=== PATIENT | female | born 1995 | race Caucasian/White ===

== ENCOUNTER 2021-02-22 11:50 | Emergency (ER) | payer OTHER, SELFPAY ==
--- NOTE | ~2021-02-22 | XR_ITS ---
EXAMINATION: XR CHEST CLINICAL INFORMATION: Shortness of breath. COMPARISON: 01/12/2018 TECHNIQUE: Frontal view of the chest was obtained. FINDINGS: Cardiomediastinal silhouette is within normal limits. The lungs are well expanded. No consolidation, edema, or effusion. No pneumothorax. XR/XR chest 1V IMPRESSION: Unremarkable examination.
[2021-02-22 11:59] VITALS: BP 125/87; BP 144/78; PULSE 60; PULSE 72; RESP 18; TEMP 36.9; O2SAT 98; BMI 32.5
--- NOTE | 2021-02-22 12:03 | ED_ITS ---
HPI - URI/Sore Throat General Chief Complaint: Upper Respiratory Symptoms Stated Complaint: n/v Time Seen by Provider: 02/22/21 11:55 Source: patient Mode of arrival: EMS Limitations: no limitations History of Present Illness HPI Narrative: 25-year-old female past medical history significant for asthma presents to the emergency department with cough, shortness of breath, fevers, nausea x3 days progressively worsening. She states that she has been having a dry cough, she states that her cough is intermittent in nature, and causes her to feel nauseous. She denies sputum production. She also states that she has been feeling short of breath, and feels like she can take a few steps without having to gasp for air. She reports fevers at home T max 101.4 yesterday night. She states she has been feeling like crap over the past 3 days, and the only thing that helped her was the oxygen from the ambulance. She is a former smoker. She states that her child is currently sick with an upper respiratory infection. She denies vomiting, abdominal pain, rhinorrhea, ear pain, sore throat, chest pain, weakness. She does report loss of appetite. Her asthma has never required intubation. Vaccinated against covid-19 MD elicited complaint: fever and cough Pertinent past history: asthma Onset (ago): day(s) (3) Consistency: constant Severity: severe Able to tolerate fluids by mouth: Yes Exacerbating factors: nothing Relieving factors: other (Oxygen) Context: sick contacts (Patient's child has an upper respiratory infection) Associated symptoms: fever, cough, shortness of breath and nausea Treatments prior to arrival: other (Oxygen) Related Data Previous Rx's Medication Instructions Recorded albuterol sulfate 90 mcg/actuation 1 inh INHALATION QID PRN #8.5 g 02/22/21 aerosol inhaler (ProAir HFA) azithromycin 250 mg tablet See Rx Instructions PO .COMPLEX #6 02/22/21 (Zithromax Z-Kyaw) tab benzonatate 100 mg capsule 100 mg PO BID PRN #14 cap 02/22/21 (Tessalon Perles) prednisone 20 mg tablet 60 mg PO DAILY 4 Days #12 tab 02/22/21 Allergies Allergy/AdvReac Type Severity Reaction Status Date / Time butalbital [From FIORICET] Allergy Unknown SWELLING Unverified 01/15/20 16:46 codeine [CODEINE] Allergy Unknown ITCHING Unverified 01/15/20 16:46 codeine Allergy Unknown itching Uncoded 09/19/16 00:00 fiorocet Allergy Unknown lip Uncoded 01/16/17 00:00 swelling shell fish Allergy Unknown rash Uncoded 09/19/16 00:00 SHELLFISH Allergy Unknown SWELLING Uncoded 01/15/20 16:46 Review of Systems Review of Systems: Yes all other systems are reviewed and are negative Neurologic: Reports Abnormal speech present [facility]LY [facility] Past Medical History Attestation statement: The following information was validated with the patient. Source: old records reviewed and nursing notes reviewed Social History Social History Advance Directives: Yes Advance Directives Information Provided: Yes Advance Directives on File: No Patient : No Physical Exam Vital Signs: Vital Signs: Last Vital Signs Temp 97.5 F 02/22/21 12:59 Pulse 82 02/22/21 12:59 Resp 14 02/22/21 12:59 BP 125/70 02/22/21 12:59 Pulse Ox 94 02/22/21 12:59 Body Mass Index 32.5 Const: General: cooperative, no acute distress, well developed, alert and awake Orientation/consciousness: oriented to person HENMT: Head: Yes normal to inspection, Yes normocephalic and Yes atraumatic Ears: hearing grossly normal bilaterally General nose exam: Normal external nose present Face and sinus: Yes normal facial exam Mouth: Normal oral and palatal mucosa present, lip normal, tongue normal, oropharynx normal and moist mucous membranes Throat: Yes posterior oropharynx normal, Yes tonsils normal and Yes uvula midline Eyes: General: appearance normal, both eyes and all related structures Eyelids: Yes eyelids normal Conjunctivae: conjunctivae normal Sclerae: sclerae normal Corneas: corneas normal Pupils: Equal, round and reactive pupils present Neck: Neck: Yes normal visual inspection, Yes no lymphadenopathy, Yes trachea midline and Yes supple Thyroid: Thyroid normal Lymphatic: no lymphadenopathy noted Chest: Chest palpation & inspection: normal inspection of the chest and normal palpation of entire chest wall Resp: Effort & Inspection: normal respiratory effort and able to speak in complete sentences Auscultation: wheezes Cardio: Rate: regular rate Rhythm: regular rhythm Heart sounds: S1 normal heart sound present, S2 normal heart sound present and no murmurs GI: Inspection: Yes normal to inspection Palpation (GI): Soft to palpation, nontender and No hepatosplenomegaly present Auscultation: normal bowel sounds : General: Yes no CVA tenderness Back/Spine/Pelvis: Back: no CVA tenderness Thoracic/Lumbar Spine: thoracic and lumbar spine normal to inspection Skin: General skin exam: no rashes or lesions noted, no erythema and no jaundice Lesions: no lesions Rashes: no rashes Trauma: no lacerations or abrasions Wounds: no wounds Neuro: General: oriented to person, moves all extremities and no focal motor deficits Cranial nerves: Yes Equal, round and reactive pupils present Cognition (Neuro): normal cognition Speech: Abnormal speech present Motor exam (neuro): Motor abnormalities not present Extrem: Other: negative royal General: Yes normal to inspection, Yes no pedal edema and Yes no calf tenderness Right upper extremity: normal to inspection Left upper extremity: normal to inspection Right lower extremity: normal to inspection Left lower extremity: normal to inspection Psych: Appearance: grossly normal Mental Status: mental status grossly normal Speech and movement: Normal speech and movement present Affect: normal affect Attitude: cooperative Thought process: Normal thought process present Insight: Good insight present (Psych) Course Reevaluation(s) Reevaluation #1: Patient reports significant improvement after albuterol. Cxray negative. VSS. Safe for DC home with PCP follow up. Has been advised to return with new or worsneing symptoms Time: 13:05 MDM - URI/Sore Throat MDM Narrative Medical decision making narrative: 25 yo female pmhx significant for asthma presents to the ED with non productive cough, SOB and fevers Tmax 101.4 and nasuea X3 days and progressively worsening. Positive sick contacts at home child has URI. Vaccinated against covid-19. Upon physical examination there is wheezing appreciated over all lung muniz. Plan at this time is to obtain chest x-ray, COVID, give albuterol, and prednisone. This is likely bronchitis. Plan at this time is to discharge patient home on prednisone, and a Z-Kyaw. Medical Records Attestation: I reviewed the patient's medical records. Lab Data Attestation: I reviewed the patient's lab results. Labs: Lab Results 02/22/21 Range/Units 12:20 COVID-19 (JEAN CLAUDE) Negative (Negative) COVID-19 Clin Com See Note Imaging Data Chest x-ray: Attestation: I personally reviewed and interpreted this imaging study as follows: Radiologist's impression: FINDINGS: Cardiomediastinal silhouette is within normal limits. The lungs are well expanded. No consolidation, edema, or effusion. No pneumothorax. XR/XR chest 1V IMPRESSION: Unremarkable examination Discharge Plan Discharge Clinical Impression: Bronchitis, Cough, Nausea Patient Disposition: Home, Self-Care Instructions: Acute Bronchitis (ED), Cold Symptoms (ED), Acute Cough (ED) Additional Instructions: Follow-up with your primary care provider in 2 days Drink plenty of fluids Today you tested negative for COVID-19 Return to the emergency department with new or worsening symptoms Prescriptions: New benzonatate [Tessalon Perles] 100 mg capsule 100 mg PO BID PRN (Reason: cough) Qty: 14 RF: 0 prednisone 20 mg tablet 60 mg PO DAILY 4 Days Qty: 12 RF: 0 albuterol sulfate [ProAir HFA] 90 mcg/actuation HFA aerosol inhaler 1 inh inhalation QID PRN (Reason: shortness of breath or wheezing) Qty: 8.5 RF: 0 azithromycin [Zithromax Z-Kyaw] 250 mg tablet See Rx Instructions PO .COMPLEX Qty: 6 RF: 0
[2021-02-22] MEDS: Albuterol Sulfate 90 MCG 8 GM INHALER 4 PUFF INHALE (12:14)
[2021-02-22 12:45] LABS: COVID-19 Test Negative (Negative)
[2021-02-22 12:59] VITALS: BP 125/70; PULSE 82; RESP 14; TEMP 36.4; O2SAT 94
[2021-02-22] MEDS: predniSONE 20 MG TABLET 60 MG PO (13:14)
== END 2021-02-22 13:39 | disposition home or self-care (01) ==
PROVIDERS: Emergency Provider Emergency Medicine Emergency Medical Services
DX: J20.9 Acute bronchitis, unspecified (principal); R05.9 Cough, unspecified; R06.02 Shortness of breath; R11.0 Nausea; R50.9 Fever, unspecified; Z20.822 Contact with and (suspected) exposure to COVID-19
CPT/HCPCS: 36415; 71045; 87635; 99284

== ENCOUNTER 2021-07-22 10:43 | Emergency (ER) | payer OTHER, SELFPAY ==
[2021-07-22 10:51] VITALS: BP 113/78; PULSE 78; RESP 16; TEMP 36.2; O2SAT 99; BMI 30.2
--- NOTE | 2021-07-22 11:02 | ED.HA ---
HPI - Headache General Chief Complaint: Headache Stated Complaint: Rash/Migraine Time Seen by Provider: 07/22/21 11:00 Source: patient Mode of arrival: ambulatory Limitations: no limitations History of Present Illness HPI Narrative: Patient is a 26 year old female presenting to the emergency department today with a migraine headache. Patient states that she has a history of migraines and is in the middle of one now. Patient states that she has been having this migraine for the last 3 days. Patient states that this morning she woke up with a rash on her upper leg. Patient denies any dizziness, lightheadedness, abdominal pain, nausea, vomiting, fever, chills, blurry vision, double vision, loss of vision, chest pain, difficulty breathing, shortness of breath, back pain, night sweats, pain with urination, increased urinary frequency, increased urinary urgency, blood in her urine or stool, syncope or a near syncopal episode, recent trauma or falls, bowel incontinence, bladder incontinence, bowel retention, bladder retention, or any other complaints at this time. MD elicited complaint: migraine Pertinent past history: migraines Onset (ago): day(s) (3) Onset description: gradually Location: generalized Severity: mild Pain scale (0-10): 3 Quality & Timing: dull Exacerbating factors: none Relieving factors: nothing Associated symptoms: rash Related Data Previous Rx's Medication Instructions Recorded albuterol sulfate 90 mcg/actuation 2 puff INHALATION Q4-6H PRN #8.5 g 02/22/21 aerosol inhaler azithromycin 250 mg tablet See Rx Instructions PO .COMPLEX 02/22/21 (Zithromax Z-Kyaw) PRN #6 tab benzonatate 100 mg capsule 100 mg PO BID PRN #14 cap 02/22/21 (Tessalon Perles) prednisone 20 mg tablet 60 mg PO DAILY 4 Days #12 tab 02/22/21 Allergies Allergy/AdvReac Type Severity Reaction Status Date / Time butalbital [From FIORICET] Allergy Unknown SWELLING Verified 07/22/21 10:52 codeine [CODEINE] Allergy Unknown ITCHING Verified 07/22/21 10:52 codeine Allergy Unknown itching Uncoded 09/19/16 00:00 fiorocet Allergy Unknown lip Uncoded 01/16/17 00:00 swelling shell fish Allergy Unknown rash Uncoded 09/19/16 00:00 SHELLFISH Allergy Unknown SWELLING Uncoded 01/15/20 16:46 Review of Systems Constitutional: Constitutional: Reports no additional constitutional complaints, Denies chills, Denies fever(s), Reports headache(s) and Denies night sweats Eyes: Eyes: Reports no additional eye complaints, Denies blurry vision, Denies change in vision, Denies diplopia, Denies eye discharge, Denies loss of vision and Denies eye pain ENT: Denies dizziness and Reports headache(s) Cardiovascular: Cardiovascular: Reports no additional cardiovascular complaints, Denies chest pain, Denies lightheadedness, Denies Loss of Consciousness and Denies dyspnea Respiratory: Respiratory: Reports no additional respiratory complaints and Denies dyspnea Gastrointestinal: Gastrointestinal: Reports no additional gastrointestinal complaints, Denies abdominal pain, Denies melena, Denies hematochezia, Denies change in bowel habits and Denies change in stool character Genitourinary: Genitourinary: Denies hematuria, Denies urinary frequency, Denies dysuria, Denies urinary incontinence, Denies urinary hesitancy and Denies urinary urgency Musculoskeletal: Musculoskeletal: Reports no additional musculoskeletal complaints, Denies numbness and Denies tingling Integumentary/Breasts: Skin/Breast: Reports rash Neurologic: Denies dizziness, Reports headache(s), Denies loss of vision, Denies numbness and Denies tingling Psychiatric: Psychiatric: Reports no additional psychiatric complaints Endocrine: Endocrine: Reports no additional endocrine complaints Hematologic/Lymphatic: Hematologic/Lymphatic: Reports no additional hematologic/lymphatic complaints Allergic/Immunologic: Allergic/Immunologic: Reports no additional allergic/immunologic complaints [facility] Past Medical History Attestation statement: The following information was validated with the patient. Source: old records reviewed Social History Social History Alcohol intake: never Patient Tobacco Use Status: Former Tobacco user Advance Directives: No Advance Directives Information Provided: No Patient : No Physical Exam Vital Signs: Vital Signs: Last Vital Signs Temp 97.1 F 07/22/21 10:51 Pulse 78 07/22/21 10:51 Resp 16 07/22/21 10:51 BP 113/78 07/22/21 10:51 Pulse Ox 99 07/22/21 10:51 BMI result Body Mass Index 30.2 Const: General: cooperative, no acute distress, alert and awake Nutritional Appearance: well nourished Orientation/consciousness: patient oriented x3 Limitations: no limitations HEENT: Head: Yes normal to inspection and Yes atraumatic Ears: hearing grossly normal bilaterally and external ears normal General nose exam: Normal external nose present, no nasal discharge noted and no epistaxis Face and sinus: Yes normal facial exam, No abrasion and No laceration Mouth: Normal oral and palatal mucosa present, no drooling and no muffled voice Eyes: General: appearance normal, both eyes and all related structures Periorbital: periorbital findings normal Eyelids: Yes eyelids normal Conjunctivae: conjunctivae normal Pupils: Equal, round and reactive pupils present EOM: EOMs intact bilaterally Neck: Neck: Yes normal visual inspection, Yes full ROM and Yes no lymphadenopathy Chest: Chest palpation & inspection: normal inspection of the chest Resp: Effort & Inspection: normal respiratory effort and able to speak in complete sentences Auscultation: clear to auscultation bilaterally Cardio: Rate: regular rate Rhythm: regular rhythm GI: Inspection: Yes normal to inspection Skin: Other: erythematous rash to the right upper thigh consistent with a contact dermatitis Neuro: General: patient oriented x3 and moves all extremities Cranial nerves: Yes Equal, round and reactive pupils present Cognition (Neuro): normal cognition Motor exam (neuro): 5/5 motor strength present throughout Sensory Exam: Normal double simultaneous stimulation for sensation Coordination: [id number] test normal Extrem: General: Yes normal to inspection, Yes full ROM and Yes capillary refill normal Psych: Appearance: grossly normal Mental Status: mental status grossly normal Affect: normal affect Attitude: cooperative Thought process: Normal thought process present Thought content: Normal thought content present Insight: Good insight present (Psych) MDM - Headache MDM Narrative Medical decision making narrative: Patient is a 26 year old female presenting to the emergency department today with a migraine headache. Patient's physical exam showed a small, erythematous rash to the anterior aspect of the right upper leg. The rash is consistent with a contact dermatitis. Patient's physical exam was otherwise unremarkable including a normal neurological examination and no meningeal signs. I explained my physical exam findings to the patient. I answered all questions asked by the patient. Patient received IM Toradol and Benadryl as well as PO Zofran which she stated helped her symptoms significantly. I stressed the importance of the patient taking her medication as prescribed. I stressed the importance of the patient following up with her primary care provider. I stressed the importance of the patient returning to the emergency department immediately if her symptoms were to worsen or if she were to develop any dizziness, shortness of breath, difficulty breathing, chest pain, blurry vision, loss of vision, nausea, vomiting, abdominal pain, fever, chills, back pain, or any other complaints. Patient verbalized agreement and understanding with this treatment plan and discharge. Differential Diagnosis Differential diagnosis: Likely migraine Medical Records Attestation: I reviewed the patient's medical records. Discharge Plan Discharge Clinical Impression: Migraine Patient Disposition: Home, Self-Care Instructions: Migraine Headache (ED) Additional Instructions: Follow up with your primary care provider. Return to the emergency department immediately if your symptoms worsen or if you develop any dizziness, shortness of breath, difficulty breathing, chest pain, blurry vision, loss of vision, nausea, vomiting, abdominal pain, fever, chills, back pain, or any other complaints. Prescriptions: No Action benzonatate [Tessalon Perles] 100 mg capsule 100 mg PO BID PRN (Reason: cough) Qty: 14 0RF albuterol sulfate 90 mcg/actuation HFA aerosol inhaler 2 puff inhalation Q4-6H PRN (Reason: shortness of breath or wheezing) Qty: 8.5 0RF prednisone 20 mg tablet 60 mg PO DAILY 4 Days Qty: 12 0RF azithromycin [Zithromax Z-Kyaw] 250 mg tablet See Rx Instructions PO .COMPLEX PRN (Reason: cough) Qty: 6 0RF Rx Instructions: take 500 mg today (day 1), then 250 mg for 4 days (days 2-5) PO PRN; Referrals: Physician,None [Primary Care Provider] - 2 days (Follow up with your PCP. ) Print Language: Sami
[2021-07-22] MEDS: Ketorolac Tromethamine 15 MG/ML VIAL IM (11:43)
[2021-07-22] MEDS: Ondansetron ODT 4 MG TAB.RAPDIS TRANSLINGU (11:43)
[2021-07-22] MEDS: diphenhydrAMINE HCL 50 MG/ML VIAL 25 MG IM (11:43)
[2021-07-22 11:47] VITALS: RESP 16
== END 2021-07-22 11:58 | disposition home or self-care (01) ==
PROVIDERS: Emergency Provider Emergency Medicine
DX: G43.909 Migraine, unspecified, not intractable, without status migrainosus (principal)
CPT/HCPCS: 96372; 99284; J1200; J1885

== ENCOUNTER 2021-11-19 16:34 | Emergency (ER) | payer OTHER, SELFPAY ==
[2021-11-19 17:10] VITALS: BP 116/55; PULSE 68; RESP 16; TEMP 36.3; O2SAT 97; BMI 34.6
[2021-11-19 17:49] LABS: MANUAL DIFF FLAG NO
[2021-11-19 17:52] LABS: Basophils Percent Auto 0.1 % (0-2); Eosinophils Percent Auto 0.1 % (0-4); Hematocrit 40.8 % (37.0-47.0); Hemoglobin 13.2 g/dl (12.0-16.0); Imm Gran Abs Auto 0.05 X10*3/uL (0.00-0.03); Imm Gran Pct Auto 0.3 % (0.0-0.4); Lymphocytes Absolute Auto 0.7 X10*3/uL (1.2-4.9); Lymphocytes Percent Auto 4.3 % (20-40); Mean Corpuscular HGB Conc 32.4 g/dl (31.0-35.0); Mean Corpuscular Hemoglobin 26.1 pg (27.0-33.0); Mean Corpuscular Volume 80.6 fL (80.0-98.0); Mean Platelet Volume 9.8 fL (9.4-12.3); Monocytes Absolute Auto 0.3 X10*3/uL (0.1-1.2); Neutrophils Absolute Auto 14.6 x10*3/uL (2.0-8.3); Neutrophils Percent Auto 93.2 % (45-73); Platelet Count 249 X10*3/uL (160-400); Red Blood Count 5.06 X10*6/uL (4.20-5.50); Red Cell Distribution Width 12.9 % (11.0-16.0); SCAN SMEAR FLAG 1; White Blood Count 15.7 X10*3/uL (4.8-10.8)
[2021-11-19 18:07] LABS: COVID-19 Test Negative (Negative); IDNOW Serial# 55D5AD1C
[2021-11-19 18:10] LABS: Influenza A Negative (Negative); Influenza B2 Negative (Negative)
[2021-11-19 18:22] LABS: Anion Gap 12 (12-20); Blood Urea Nitrogen 9 mg/dL (9-16); Calcium 8.9 mg/dL (8.4-10.2); Carbon Dioxide 27 mmol/L (22-29); Chloride 104 mmol/L (96-108); Creatinine Clr Calc Pharmacy 102.1; Estimated Glomerular Filt Rate > 60; Glucose Random 85 mg/dL (60-115); Potassium 3.5 mmol/L (3.3-5.1); Sodium 139 mmol/L (135-145)
== END 2021-11-19 23:23 | disposition left against medical advice (07) ==
PROVIDERS: Emergency Provider Emergency Medicine
DX: R11.10 Vomiting, unspecified (principal); R51.9 Headache, unspecified; Z20.822 Contact with and (suspected) exposure to COVID-19; F17.200 Nicotine dependence, unspecified, uncomplicated; F12.90 Cannabis use, unspecified, uncomplicated
CPT/HCPCS: 36415; 80048; 85025; 87502; 87635; 99283

== ENCOUNTER 2021-12-27 15:00 | Inpatient (IN) | payer OTHER, SELFPAY ==
--- NOTE | ~2021-12-27 | XR_ITS ---
EXAMINATION: XR FINGER, LEFT CLINICAL INFORMATION: Infection index finger. Insect bite 1 week ago. COMPARISON: None TECHNIQUE: AP view left hand and 2 views of the index finger are obtained. FINDINGS: There is diffuse soft tissue swelling of the index finger. There is no gas tracking in the soft tissues or radiopaque soft tissue foreign body. The underlying bony structures show normal mineralization. There is no acute or healing fracture, dislocation, destructive process, or periostitis. No joint narrowing or erosive changes. XR/XR finger LT min 2V IMPRESSION: -Diffuse soft tissue swelling left index finger. -No gas tracking in soft tissues. No radiopaque soft tissue from body. -No bony destructive process, fracture, or periostitis.
[2021-12-27 15:05] VITALS: BP 117/65; PULSE 105; RESP 16; TEMP 36.6; O2SAT 99; BMI 34.6
[2021-12-27] MEDS: Lidocaine HCl 1 % MPF 2 ML VIAL INFILTRATI ×4 (17:07)
[2021-12-27] MEDS: cephALEXin 500 MG CAPSULE PO (17:08)
[2021-12-27 18:51] LABS: MANUAL DIFF FLAG NO
[2021-12-27] MEDS: Piperacillin Sodium/Tazobactam 3.375 GM in 0.9 % Sodium Chloride 50 ML IV (18:51)
[2021-12-27] MEDS: Morphine Sulfate 10 MG/ML CARTRIDGE 6 MG IVPUSH (18:51)
[2021-12-27 18:54] VITALS: BP 106/76; PULSE 74; RESP 16; O2SAT 99
[2021-12-27 19:00] LABS: Basophils Percent Auto 0.3 % (0-2); Eosinophils Absolute Auto 0.2 X10*3/uL (0.0-0.4); Eosinophils Percent Auto 1.5 % (0-4); Hematocrit 39.5 % (37.0-47.0); Imm Gran Abs Auto 0.05 X10*3/uL (0.00-0.03); Imm Gran Pct Auto 0.5 % (0.0-0.4); Lymphocytes Absolute Auto 1.8 X10*3/uL (1.2-4.9); Lymphocytes Percent Auto 15.9 % (20-40); Mean Corpuscular HGB Conc 32.9 g/dl (31.0-35.0); Mean Corpuscular Hemoglobin 26.4 pg (27.0-33.0); Mean Corpuscular Volume 80.3 fL (80.0-98.0); Monocytes Absolute Auto 0.7 X10*3/uL (0.1-1.2); Monocytes Percent Auto 6.7 % (2-11); Neutrophils Absolute Auto 8.3 x10*3/uL (2.0-8.3); Neutrophils Percent Auto 75.1 % (45-73); Platelet Count 226 X10*3/uL (160-400); Red Blood Count 4.92 X10*6/uL (4.20-5.50); Red Cell Distribution Width 13.2 % (11.0-16.0)
[2021-12-27 19:02] LABS: Lactic Acid 0.6 mmol/L (0.5-2.0)
[2021-12-27 19:08] LABS: Alanine Aminotransferase 22 U/L (0-31); Albumin Level 4.2 g/dL (3.5-5.0); Alkaline Phosphatase 85 U/L (39-117); Anion Gap 14 (12-20); Aspartate Amino Transferase 28 U/L (5-31); Bilirubin Direct 0.3 mg/dL (0.0-0.5); Bilirubin Total 0.7 mg/dL (0.0-1.0); Blood Urea Nitrogen 9 mg/dL (9-16); Calcium 9.2 mg/dL (8.4-10.2); Carbon Dioxide 23 mmol/L (22-29); Chloride 105 mmol/L (96-108); Creatinine Clr Calc Pharmacy 111.6; Estimated Glomerular Filt Rate > 60; Glucose Random 107 mg/dL (60-115); Potassium 3.8 mmol/L (3.3-5.1); Sodium 138 mmol/L (135-145)
--- NOTE | 2021-12-27 19:13 | ED.GENADULT ---
HPI - General Adult General Chief complaint: Animal Bite Stated complaint: spider bite/infected,swollen Time Seen by Provider: 12/27/21 15:38 History of Present Illness HPI narrative: Patient complains of left index finger pain and swelling which developed over the past weeks, she believes it started when she got bit by an insect but is not sure She denies any fever or chills, no nausea or vomiting, pain at home has been mild and she has been able to use her hand, no other rash no other joints or body parts affected Related Data Previous Rx's Medication Instructions Recorded albuterol sulfate 90 mcg/actuation 2 puff inhalation Q4-6H PRN 02/22/21 aerosol inhaler shortness of breath or wheezing #8.5 grams azithromycin 250 mg tablet See Rx Instructions PO .COMPLEX 02/22/21 (Zithromax Z-Kyaw) PRN cough #6 tabs benzonatate 100 mg capsule 100 mg PO BID PRN cough #14 caps 02/22/21 (Tessalon Perles) prednisone 20 mg tablet 60 mg PO DAILY 4 days #12 tabs 02/22/21 Allergies Allergy/AdvReac Type Severity Reaction Status Date / Time butalbital [From FIORICET] Allergy Unknown SWELLING Verified 11/19/21 17:13 codeine [CODEINE] Allergy Unknown ITCHING Verified 11/19/21 17:13 oxycodone Allergy Itching Verified 11/19/21 17:13 codeine Allergy Unknown itching Uncoded 11/19/21 17:13 fiorocet Allergy Unknown lip Uncoded 11/19/21 17:13 swelling shell fish Allergy Unknown rash Uncoded 11/19/21 17:13 SHELLFISH Allergy Unknown SWELLING Uncoded 11/19/21 17:13 Review of Systems Review of Systems: Positive for left index finger pain and swelling Negatives are no fever no chills no dizziness no weakness no fainting no feeling faint no headache no neck pain no chest pain, no numbness weakness or tingling, no other skin rash no other joint pains Yes all other systems are reviewed and are negative PMFSH Past Medical History Source: nursing notes reviewed Social History Social History Alcohol intake: never Patient Tobacco Use Status: Current everyday Tobacco user Substance Use Type: Marijuana Advance Directives: No Advance Directives Information Provided: No Physical Exam ED Vital Signs: Vital Signs - 24 hr 12/27/21 15:05 12/27/21 18:54 12/27/21 19:35 Temperature 98 F Pulse Rate 105 H 74 Respiratory Rate 16 16 18 Blood Pressure 117/65 106/76 Pulse Oximetry 99 99 Oxygen Delivery Method Room Air Room Air BMI result Body Mass Index 34.6 General appearance is no acute distress The head is normocephalic atraumatic The neck is supple Respiratory no distress, chest clear to auscultation bilateral Abdomen soft nontender Extremities the left index finger is a sausage digit held in a partially flexed position, there is fluctuance over distal and and proximal phalanx, there is mild pain with passive extension, there is tenderness over the volar phalanx but no tenderness proximal to the proximal phalanx, painless full range of motion in the wrist, patient are intact, neurovascular intact, sensation and motor n flex the finger Other extremities normal Skin no other rash Neuro no focal motor sensory deficits Course Course Course Narrative: White count was 11.0 Initial pulse of 105 was 74 on repeat check, lactic acid was 0.6 No other acute lab abnormalities X rays show diffuse soft tissue swelling without gas or evidence of muscular myelitis Case was discussed with attending physician Dr. Desai who advised release some of the pus by making a small incision in the dorsum of the distal phalanx Procedure note done under sterile conditions after cleaning with Betadine a sterile block was placed with 1% lidocaine, finger was cleansed with Betadine, of small 0.5 cm incision was made and copious pus was expressed from this incision but the finger did remain very swollen with fluctuance in the volar aspect of the finger Case was discussed with orthopedic physician assistant soares who advised admission, IV antibiotics, they will consult in the morning, patient will be NPO after midnight for possible surgical procedure in the morning tomorrow Patient was informed and p.o. after midnight and was admitted to the hospital Medical Decision Making Lab Data Lab results reviewed: Yes I reviewed the patient's lab results. Result diagrams: 12/27/21 18:46 12/27/21 18:46 Labs: Lab Results 12/27/21 12/27/21 12/27/21 Range/Units 18:46 18:46 18:46 WBC 11.0 H (4.8-10.8) X10*3/uL RBC 4.92 (4.20-5.50) X10*6/uL Hgb 13.0 (12.0-16.0) g/dl Hct 39.5 (37.0-47.0) % MCV 80.3 (80.0-98.0) fL MCH 26.4 L (27.0-33.0) pg MCHC 32.9 (31.0-35.0) g/dl RDW 13.2 (11.0-16.0) % Plt Count 226 (160-400) X10*3/uL MPV 10.0 (9.4-12.3) fL Immature Gran % (Auto) 0.5 H (0.0-0.4) % Neut % (Auto) 75.1 H (45-73) % Lymph % (Auto) 15.9 L (20-40) % Archuleta % (Auto) 6.7 (2-11) % Eos % (Auto) 1.5 (0-4) % Baso % (Auto) 0.3 (0-2) % Lymph # (Auto) 1.8 (1.2-4.9) X10*3/uL Archuleta # (Auto) 0.7 (0.1-1.2) X10*3/uL Eos # (Auto) 0.2 (0.0-0.4) X10*3/uL Baso # (Auto) 0.0 (0.0-0.2) X10*3/uL Abs Immat Gran (auto) 0.05 H (0.00-0.03) X10*3/uL Absolute Neuts (auto) 8.3 (2.0-8.3) x10*3/uL Absolute Nucleated RBC 0.000 (0.0-0.012) X10*3/uL Nucleated RBC % (auto) 0.0 (0.0-0.2) /100WBC Sodium 138 (135-145) mmol/L Potassium 3.8 (3.3-5.1) mmol/L Chloride 105 (96-108) mmol/L Carbon Dioxide 23 (22-29) mmol/L Anion Gap 14 (12-20) BUN 9 (9-16) mg/dL Creatinine 0.64 (0.5-1.4) mg/dL Estim Creat Clear Calc 111.6 Estimated GFR > 60 Random Glucose 107 (60-115) mg/dL Lactic Acid 0.6 (0.5-2.0) mmol/L Calcium 9.2 (8.4-10.2) mg/dL Total Bilirubin 0.7 (0.0-1.0) mg/dL Direct Bilirubin 0.3 (0.0-0.5) mg/dL AST 28 (5-31) U/L ALT 22 (0-31) U/L Alkaline Phosphatase 85 (39-117) U/L Total Protein 7.0 (6.5-8.0) g/dL Albumin 4.2 (3.5-5.0) g/dL Discharge Plan Discharge Clinical Impression: Tenosynovitis Patient Disposition: Admitted As Inpatient Prescriptions: No Action benzonatate [Tessalon Perles] 100 mg capsule 100 mg PO BID PRN (Reason: cough) Qty: 14 0RF albuterol sulfate 90 mcg/actuation HFA aerosol inhaler 2 puff inhalation Q4-6H PRN (Reason: shortness of breath or wheezing) Qty: 8.5 0RF prednisone 20 mg tablet 60 mg PO DAILY 4 Days Qty: 12 0RF azithromycin [Zithromax Z-Kyaw] 250 mg tablet See Rx Instructions PO .COMPLEX PRN (Reason: cough) Qty: 6 0RF Rx Instructions: take 500 mg today (day 1), then 250 mg for 4 days (days 2-5) PO PRN;
[2021-12-27] MEDS: vancomycin HCL 1,000 MG in 0.9 % Sodium Chloride 250 ML 270 MG IV (19:29)
[2021-12-27 19:35] VITALS: RESP 18
[2021-12-27] MEDS: Morphine Sulfate 4 MG/ML CARTRIDGE IVPUSH (19:35)
--- NOTE | 2021-12-27 20:36 | PHA.MEDREC ---
Pharmacy Consult ? Medication Reconciliation Pharmacy has completed the medication reconciliation.
--- NOTE | 2021-12-27 20:54 | P.HPHOSP_ITS ---
History of Present Illness Date of Service: 12/27/21 Chief Complaint: Left index finger pain redness and swelling 26-year-old female with past medical history of asthma presented to the hospital today with a chief complaint of left index finger pain redness and swelling. Patient reports that for the past 1 week she has been having pain and swelling of his left index finger which has been gradually worsening, today she has severe pain hence decided come to the ER further evaluation. Patient denies any fevers and chills. Mentions that she probably thing she had a but bite - questions prior on the left index finger. Denies any IV drug abuse. Denies any nausea vomiting or diarrhea. Denies any chest pain or palpitations. Review of all other systems is negative except mentioned above ER course: Per ER team patient noted to have significant swelling of the left index finger, tried to do I&D on the dorsum of the finger, noted to have serosanguineous discharge. Taken pictures and showed it to the orthopedics team Dr. Ramirez- suggested admission to the medicine service and to antibiotics and will possibly intervene in the morning, no overnight intervention recommended. Patient was given IV vancomycin and Zosyn and admitted to the hospital for further management. PMFSH Pertinent family history: Mentions depression runs in the family Social History Household Members: Family Housing: House Do you presently have visiting nurse or other home services: No Alcohol intake: never Patient Tobacco Use Status: Current someday Tobacco user Tobacco use type: Cigarette Cigarettes Per Day: 2 Second Hand Smoke Exposure: Yes Substance Use Type: Marijuana service: No Current occupational status: disabled Meds Allergies Allergy/AdvReac Type Severity Reaction Status Date / Time butalbital [From FIORICET] Allergy Unknown LIP Verified 12/28/21 13:10 SWELLING shellfish derived Allergy Swelling/ra Verified 12/28/21 13:10 sh Active Medications: Current Medications Acetaminophen (Acetaminophen 325 Mg Tablet) 650 mg PO Q6H PRN PRN Reason: Pain, Mild (Pain Scale 1-3) Docusate Sodium (Docusate Sodium 100 Mg Capsule) 100 mg PO DAILY PRN PRN Reason: Constipation Heparin Sodium (Porcine) (Heparin Sodium,Porcine 5,000 Unit/Ml Vial) 5,000 unit SUBCUT Q8H [facility] Hydromorphone HCl (Hydromorphone Hcl 1 Mg/Ml Syringe) 0.5 mg IVPUSH Q4H PRN; Protocol PRN Reason: Pain, Severe (Pain Scale 7-10) Sodium Chloride (Ns) 1,000 mls @ 100 mls/hr IVCONT .Q10H [facility] Vancomycin HCl 1,000 mg/ (Sodium Chloride) 270 mls @ 270 mls/hr IV Q12H [facility] Melatonin (Melatonin 3 Mg Tablet) 6 mg PO BEDTIME PRN PRN Reason: Insomnia Pharmacy Consult (Consult Rx Vancomycin Dosing) 1 each MISCELLANE DAILY PRN PRN Reason: Consult order Sodium Chloride (0.9 % Sodium Chloride Flush 3 Ml Syringe) 3 ml IVFLUSH QSHIFT [facility] Physical Exam Vital Signs and Narrative: Vital Signs: Last Vital Signs Temp 98 F 12/27/21 15:05 Pulse 74 12/27/21 18:54 Resp 18 12/27/21 19:35 BP 106/76 12/27/21 18:54 Pulse Ox 99 12/27/21 18:54 O2 Del Method 12/27/21 18:54 BMI result Body Mass Index 34.6 Gen: Appears be in no acute distress HEENT: NCAT, Moist mucosa. Pulmonary: Vesicular breath sounds, fair air entry CVS: Normal S1-S2 Abdomen: BS+, Soft, Nontender Extremities: Warm well perfused; left index finger is swollen, tender, erythematous showing the picture below pulses are palpable. Neuro: Alert and awake. Grossly nonfocal. Sensations intact. Results Labs CBC and Chem 7: 12/30/21 05:16 12/31/21 05:45 Labs: Laboratory Results - last 24 hr 12/27/21 12/27/21 12/27/21 18:46 18:46 18:46 MCV 80.3 MCH 26.4 L MCHC 32.9 RDW 13.2 Plt Count 226 MPV 10.0 Immature Gran % (Auto) 0.5 H Neut % (Auto) 75.1 H Lymph % (Auto) 15.9 L [place] % (Auto) 6.7 Eos % (Auto) 1.5 Baso % (Auto) 0.3 Lymph # (Auto) 1.8 [place] # (Auto) 0.7 Eos # (Auto) 0.2 Baso # (Auto) 0.0 Abs Immat Gran (auto) 0.05 H Absolute Neuts (auto) 8.3 Absolute Nucleated RBC 0.000 Nucleated RBC % (auto) 0.0 Anion Gap 14 Estim Creat Clear Calc 111.6 Estimated GFR > 60 Random Glucose 107 Lactic Acid 0.6 Calcium 9.2 Total Bilirubin 0.7 Direct Bilirubin 0.3 AST 28 ALT 22 Alkaline Phosphatase 85 Total Protein 7.0 Albumin 4.2 Imaging Radiologist's Impressions: Impressions Finger X-Ray 12/27/21 15:43 IMPRESSION: -Diffuse soft tissue swelling left index finger. -No gas tracking in soft tissues. No radiopaque soft tissue from body. -No bony destructive process, fracture, or periostitis. Assessment and Plan (1) Cellulitis of left finger: Status: Acute Plan 26-year-old female with past medical history of asthma presented to the hospital today with a chief complaint of left index finger pain redness and swelling. noted to have left index finger cellulitis / tenosynovitis. Admitt ed for further management. Left index finger cellulitis /tenosynovitis: Orthopedics team aware of the patient-recommended admission to the medicine service and IV antibiotics for tonight. Continue IV vancomycin and Zosyn Pain control Patient currently denies any paresthesias, pulses palpable, X-ray showed no evidence of fracture, No gas. Will continue to monitor DVT prophylaxis: Subcu heparin Code status: Full code Quality Stroke Does the patient have a stroke diagnosis?: No VTE Prior VTE?: No VTE Risk Level:: Medical - moderate - high VTE Device Contraindication: Treatment Not Indicated VTE Drug Contraindication: N/A - Med Ordered
[2021-12-27] MEDS: 0.9 % Sodium Chloride 1,000 ML 100 ML IVCONT (21:07)
--- NOTE | 2021-12-27 21:16 | PC.NURSE ---
Pharmacy instructed to give 500mg vancomycin
[2021-12-27] MEDS: vancomycin HCL 500 MG in 0.9 % Sodium Chloride 100 ML 110 MG IV (21:26)
[2021-12-27] MEDS: Heparin Sodium,Porcine 5,000 UNIT/ML VIAL 5000 UNIT SUBCUT (21:28)
[2021-12-27 21:31] LABS: HCG Quantitative < 2 mIU/mL
--- NOTE | 2021-12-27 21:34 | PHA.PROG ---
Admission Date/Time: December 27, 2021 20:40 Indication: Skin Weight in k.575 kg Adjusted body weight in Kg: [place] body weight in Kg: Obesity Dosing Indication % IBW: >20% Serum Creatinine - Last 168 Hours 12/27/21 18:46 Creatinine 0.64 Estimated CrCl and GFR - Last 168 Hours 12/27/21 18:46 Estim Creat Clear Calc 111.6 Estimated GFR > 60 Vancomycin Loading Dose: 1000mg X1 plus 500mg X1 Current Vancomycin Dosing Regimen: 1000mg Q12H Vancomycin Monitoring using AUC goal of 400 - 600 range with trough as surrogate marker: 478mg/L Date and Time for next Vancomycin Level to be drawn: 12/29 @0700 Pharmacist Comments on Vancomycin Plan: Vancomycin dosing will take advantage of X2TV as a clinical decision support tool that uses Bayesian modeling to calculate individual patient's pharmacokinetic parameters and forecast the patient's drug concentration time course with the target goal AUC 24 range of 400 - 600 mg/L/hr.
[2021-12-27 22:40] VITALS: BP 107/62; PULSE 71; RESP 13; TEMP 36.8; O2SAT 98
[2021-12-27] MEDS: Acetaminophen 325 MG TABLET 650 MG PO (22:43)
[2021-12-27 23:18] LABS: COVID-19 Test Negative (Negative)
[2021-12-28] VITALS (10 sets, daily range): BP systolic 100–128; BP diastolic 50–83; PULSE 62–88; RESP 16–18; TEMP 36.2–36.7; O2SAT 96–99; BMI 30.2
[2021-12-28] MEDS: HYDROmorphone HCl 1 MG/ML SYRINGE 0.5 MG IVPUSH ×5 (00:52→23:08)
[2021-12-28] MEDS: Piperacillin Sodium/Tazobactam 3.375 GM in 0.9 % Sodium Chloride 50 ML IV ×4 (00:53→18:22)
[2021-12-28] MEDS: Heparin Sodium,Porcine 5,000 UNIT/ML VIAL 5000 UNIT SUBCUT (05:33)
[2021-12-28 05:49] LABS: Appearance Urine Clear; Color Urine Yellow; Glucose Urine UA Negative (Negative); Leukocyte Esterase Urine Small (1+) (Negative); Nitrite Urine Negative (Negative); Specific Gravity - Urine >= 1.030 (1.005-1.025); Urine Blood Negative (Negative); Urine Ketones Negative (Negative); Urine Protein Negative (Neg-Trace)
[2021-12-28 05:50] LABS: UPreg QC Valid YES; Urine Pregnancy NEGATIVE (NEGATIVE)
[2021-12-28 06:03] LABS: Bacteria Urine Trace (None Seen); Hyaline Casts Urine 0-2 /LPF (0-2); RBC Urine 0-2 /HPF (0-2); UACC Culture Trigger YES
[2021-12-28] MEDS: 0.9 % Sodium Chloride 1,000 ML 100 ML IVCONT ×2 (06:16→17:40)
[2021-12-28 06:24] LABS: MANUAL DIFF FLAG NO
[2021-12-28 06:36] LABS: Basophils Percent Auto 0.3 % (0-2); Eosinophils Absolute Auto 0.3 X10*3/uL (0.0-0.4); Eosinophils Percent Auto 3.5 % (0-4); Imm Gran Abs Auto 0.02 X10*3/uL (0.00-0.03); Imm Gran Pct Auto 0.3 % (0.0-0.4); Lymphocytes Percent Auto 26.6 % (20-40); Mean Corpuscular HGB Conc 32.4 g/dl (31.0-35.0); Mean Corpuscular Hemoglobin 26.7 pg (27.0-33.0); Mean Corpuscular Volume 82.2 fL (80.0-98.0); Mean Platelet Volume 10.3 fL (9.4-12.3); Monocytes Absolute Auto 0.6 X10*3/uL (0.1-1.2); Monocytes Percent Auto 8.1 % (2-11); Neutrophils Absolute Auto 4.5 x10*3/uL (2.0-8.3); Neutrophils Percent Auto 61.2 % (45-73); Platelet Count 198 X10*3/uL (160-400); Red Cell Distribution Width 13.2 % (11.0-16.0); White Blood Count 7.4 X10*3/uL (4.8-10.8)
[2021-12-28 06:40] LABS: Creatinine Clr Calc Pharmacy 105.5; Estimated Glomerular Filt Rate > 60
[2021-12-28 06:59] LABS: Anion Gap 14 (12-20); Blood Urea Nitrogen 10 mg/dL (9-16); Carbon Dioxide 22 mmol/L (22-29); Chloride 107 mmol/L (96-108); Creatinine Clr Calc Pharmacy 100.7; Estimated Glomerular Filt Rate > 60; Glucose Random 86 mg/dL (60-115); Sodium 139 mmol/L (135-145)
[2021-12-28 07:09] LABS: Calcium 8.5 mg/dL (8.4-10.2)
--- NOTE | 2021-12-28 07:12 | HE.PHANOTE ---
Vancomycin Dosing Addendum Patients renal function is up from yesterday, up from 0.64 to 0.66 mg/dL. Patient has only recieved a load at this time. Patient received 1000 mg which was an inappropriate load, 500 mg was added to make 1500 mg load. Continue regimen of 1000 mg Q12H, level to be drawn 12/29 @0700. Predicted AUC 492 mg/L/hr, trough 14.1 mg/L
--- NOTE | 2021-12-28 07:55 | PM.CNOR ---
History of Present Illness HPI Consult date: 12/28/21 Chief complaint: Cellulitis Narrative: Patient presented to the ED yesterday for left index finger redness, swelling, and pain. She reports that she sustained a bug bite about one week ago over the dorsal aspect of the finger. Over the past few days the redness and swelling drastically increased prompting her to come to the ED to be seen. A bedside I+D was performed in the ED and it is reported that there was a large amount of purulent discharge. The patient was admitted to the medicine service and began IV vanco and Zosyn. Upon evaluating the patient this morning, she reports that her pain and swelling has begun to subside. She has been kept NPO in the event that surgical intervention is warranted. Review of Systems Review of Systems: Yes all other systems are reviewed and are negative PMFSH Social History Social History Household Members: Family Housing: House Do you presently have visiting nurse or other home services: No Alcohol intake: never Patient Tobacco Use Status: Current someday Tobacco user Tobacco use type: Cigarette Cigarettes Per Day: 2 Smoked in Last 30 Days: Yes Patient Interested in Nicotine Replacement: No Patient Given Instructions on How to Stop Smoking: No Second Hand Smoke Exposure: Yes Use of substances other than those prescribed or required for medical reasons: No Substance Use Type: Marijuana Currently Displaying Signs/Symptoms of Drug Intoxication Withdrawal: No Have you been hit, kicked, punched, or otherwise hurt by someone within the past year? If so, by whom?: No Do you feel safe in your current relationship?: Yes Is there a partner from a previous relationship who is making you feel unsafe now?: No Are you made to feel afraid or neglected: No Advance Directives: No Advance Directives Information Provided: No Do you have thoughts of harming others: None Do you have a plan to hurt others: No Plan Recently lost weight without trying: No How much weight loss: Not applicable Eating poorly because of decreased appetite: No Nutrition screen score: 0 Nutrition Risks: No Nutritional Risk Patient : No : No Poor oral hygiene: No Meds Allergies Allergy/AdvReac Type Severity Reaction Status Date / Time butalbital [From FIORICET] Allergy Unknown SWELLING Verified 11/19/21 17:13 codeine [CODEINE] Allergy Unknown ITCHING Verified 11/19/21 17:13 oxycodone Allergy Itching Verified 11/19/21 17:13 codeine Allergy Unknown itching Uncoded 11/19/21 17:13 fiorocet Allergy Unknown lip Uncoded 11/19/21 17:13 swelling shell fish Allergy Unknown rash Uncoded 11/19/21 17:13 SHELLFISH Allergy Unknown SWELLING Uncoded 11/19/21 17:13 Active Medications: Current Medications Acetaminophen (Acetaminophen 325 Mg Tablet) 650 mg PO Q6H PRN PRN Reason: Pain, Mild (Pain Scale 1-3) Last Admin: 12/27/21 22:43 Dose: 650 mg Docusate Sodium (Docusate Sodium 100 Mg Capsule) 100 mg PO DAILY PRN PRN Reason: Constipation Heparin Sodium (Porcine) (Heparin Sodium,Porcine 5,000 Unit/Ml Vial) 5,000 unit SUBCUT Q8H [facility] Last Admin: 12/28/21 05:33 Dose: 5,000 unit Hydromorphone HCl (Hydromorphone Hcl 1 Mg/Ml Syringe) 0.5 mg IVPUSH Q4H PRN; Protocol PRN Reason: Pain, Severe (Pain Scale 7-10) Last Admin: 12/28/21 05:32 Dose: 0.5 mg Sodium Chloride (Ns) 1,000 mls @ 100 mls/hr IVCONT .Q10H [facility] Last Admin: 12/28/21 06:16 Dose: 100 mls/hr Vancomycin HCl 1,000 mg/ (Sodium Chloride) 270 mls @ 270 mls/hr IV Q12H [facility] Piperacillin Sod/Tazobactam (Sod 3.375 gm/ Sodium Chloride) 50 mls @ 100 mls/hr IV Q6H [facility] Last Infusion: 12/28/21 06:54 Dose: Infused Melatonin (Melatonin 3 Mg Tablet) 6 mg PO BEDTIME PRN PRN Reason: Insomnia Pharmacy Consult (Consult Rx Vancomycin Dosing) 1 each MISCELLANE DAILY PRN PRN Reason: Consult order Sodium Chloride (0.9 % Sodium Chloride Flush 3 Ml Syringe) 3 ml IVFLUSH QSHIFT [facility] Last Admin: 12/28/21 07:09 Dose: Not Given Home Medications Medication Instructions Recorded Confirmed Last Taken Type No Known Home Meds 12/27/21 12/27/21 Unknown History Physical Exam Vital Signs: Vital Signs: Last Vital Signs Temp 97.6 F 12/28/21 07:20 Pulse 88 12/28/21 07:20 Resp 17 12/28/21 07:20 BP 128/83 12/28/21 07:20 Pulse Ox 99 12/28/21 07:20 O2 Del Method 12/28/21 07:20 BMI result Body Mass Index 30.2 Const: General: cooperative, healthy appearing and no acute distress Resp: Effort & Inspection: normal respiratory effort and able to speak in complete sentences Cardio: Rate: regular rate Peripheral pulses: Peripheral pulses 2+ throughout GI: Palpation (GI): Soft to palpation Skin: Lesions: no lesions Rashes: no rashes Extrem: Other: Left hand index finger edematus, with circumfrential erythema. No active drainage. Able to actively flex and extend at the DIP, PIP, and MCP. Minimal tenderness to palpation of the dorsal or volar aspect along the tendon sheaths. Capillary refill is brisk. Sensation is reportedly intact. Results Labs Result Diagrams: 12/28/21 06:09 12/28/21 06:09 Labs: Abnormal lab results 12/27/21 12/28/21 12/28/21 Range/Units 18:46 05:40 06:09 WBC 11.0 H (4.8-10.8) X10*3/uL MCH 26.4 L 26.7 L (27.0-33.0) pg Immature Gran % (Auto) 0.5 H (0.0-0.4) % Neut % (Auto) 75.1 H (45-73) % Lymph % (Auto) 15.9 L (20-40) % Abs Immat Gran (auto) 0.05 H (0.00-0.03) X10*3/uL Ur Specific [place] >= 1.030 H (1.005-1.025) Ur Leukocyte Esterase Small (1+) H (Negative) Urine WBC 6-10 H (0-5) /HPF H & H 12/27/21 12/28/21 Range/Units 18:46 06:09 Hgb 13.0 12.0 (12.0-16.0) g/dl Hct 39.5 37.0 (37.0-47.0) % All other labs normal. Assessment and Plan (1) Tenosynovitis: Status: Acute Ms. London is a 26 yo female who presented to the ED yesterday for left index finger redness, swelling, and pain. She reports that she sustained a bug bite about one week ago over the dorsal aspect of the finger. Over the past few days the redness and swelling drastically increased prompting her to come to the ED to be seen. A bedside I+D was performed in the ED and it is reported that there was a large amount of purulent discharge. The patient was admitted to the medicine service and began IV vanco and Zosyn. Upon evaluating the patient this morning, she reports that her pain and swelling has begun to subside. She has been kept NPO in the event that surgical intervention is warranted. Dr. Ramirez was available to see the patient and has recommended bringing the patient to the operating room for incision and drainage. However, the patient is refusing to do so today stating that her mother is unable to be at her bedside because she is assisting the patient by taking care of her six children. She was educated on the risks of surgical delay as well as the risk/benefits of surgery. The patient continues to refuse surgical intervention until her mother is at bedside. Orthopedic recommendation is for irrigation and debridement of the left index finger in the operating room under sterile conditions today. Procedures Date of Service Date of Service: 12/28/21
[2021-12-28] MEDS: Acetaminophen 325 MG TABLET 650 MG PO ×2 (09:15→21:57)
[2021-12-28] MEDS: vancomycin HCL 1,000 MG in 0.9 % Sodium Chloride 250 ML 270 MG IV ×2 (09:16→21:18)
--- NOTE | 2021-12-28 11:32 | MHC.CM.PN ---
PATIENT REPORTS SHE LIVES WITH HER FAMILY INDEPENDENT AT HOME AND COMMUNITY DENIES USE OF DME OR RECEIVING HOME SERVICES NOT [facility] DOES NOT HAVE A PCP HCP- EDUCATED, DECLINED TO COMPLETE AT THIS TIME MOTHER IN LAW WILL TRANSPORT D/C PLAN: HOME SELF-CARE
--- NOTE | 2021-12-28 12:06 | P.PNIM_ITS ---
Subjective Subjective Date of Service: 12/28/21 Interval History: cc: finger pain and swelling interval history: anxious Cardiovascular Cardiovascular: Reports no additional cardiovascular complaints Respiratory Respiratory: Reports no additional respiratory complaints Physical Exam Vital Signs: Vital Signs: Last Vital Signs Temp 97.6 F 12/28/21 07:20 Pulse 88 12/28/21 07:20 Resp 17 12/28/21 07:20 BP 128/83 12/28/21 07:20 Pulse Ox 99 12/28/21 07:20 O2 Del Method 12/28/21 07:20 BMI result Body Mass Index 30.2 General: AO X 3, no acute distress Resp: CTA bilateral, no accessory muscles used CVS: S1,S2,RRR GI: soft, non tender, non distended Neuro: motor grossly intact, alert Psych: appropriate affect, appropriate insight Left hand index finger edematus, with circumfrential erythema. No active drainage. Able to actively flex and extend at the DIP, PIP, and MCP. Minimal tenderness to palpation of the dorsal or volar aspect along the tendon sheaths. Capillary refill is brisk. Sensation is reportedly intact. Objective Data Active Medications Acetaminophen (Acetaminophen 325 Mg Tablet) 650 mg PO Q6H PRN PRN Reason: Pain, Mild (Pain Scale 1-3) Last Admin: 12/28/21 09:15 Dose: 650 mg Documented By: VICTOR HUGO Alprazolam (Alprazolam 0.25 Mg Tablet) 0.25 mg PO TID PRN PRN Reason: anxiety Docusate Sodium (Docusate Sodium 100 Mg Capsule) 100 mg PO DAILY PRN PRN Reason: Constipation Heparin Sodium (Porcine) (Heparin Sodium,Porcine 5,000 Unit/Ml Vial) 5,000 unit SUBCUT Q8H [facility] Last Admin: 12/28/21 05:33 Dose: 5,000 unit Documented By: LUIS Hydromorphone HCl (Hydromorphone Hcl 1 Mg/Ml Syringe) 0.5 mg IVPUSH Q4H PRN; Protocol PRN Reason: Pain, Severe (Pain Scale 7-10) Last Admin: 12/28/21 10:25 Dose: 0.5 mg Documented By: VICTOR HUGO Sodium Chloride (Ns) 1,000 mls @ 100 mls/hr IVCONT .Q10H [facility] Last Admin: 12/28/21 06:16 Dose: 100 mls/hr Documented By: LUIS Vancomycin HCl 1,000 mg/ (Sodium Chloride) 270 mls @ 270 mls/hr IV Q12H [facility] Last Infusion: 12/28/21 10:53 Dose: 0 mls/hr Documented By: VICTOR HUGO Piperacillin Sod/Tazobactam (Sod 3.375 gm/ Sodium Chloride) 50 mls @ 100 mls/hr IV Q6H [facility] Last Infusion: 12/28/21 06:54 Dose: 0 mls/hr Documented By: LUIS Melatonin (Melatonin 3 Mg Tablet) 6 mg PO BEDTIME PRN PRN Reason: Insomnia Pharmacy Consult (Consult Rx Vancomycin Dosing) 1 each MISCELLANE DAILY PRN PRN Reason: Consult order Sodium Chloride (0.9 % Sodium Chloride Flush 3 Ml Syringe) 3 ml IVFLUSH QSHIFT [facility] Last Admin: 12/28/21 07:09 Dose: Not Given Documented By: SARITHA Non-Admin Reason: IV Running Labs CBC & Chem 7: 12/28/21 06:09 12/28/21 06:09 Labs: Laboratory Results - last 24 hr 12/27/21 12/27/21 12/27/21 18:46 18:46 18:46 MCV 80.3 MCH 26.4 L MCHC 32.9 RDW 13.2 Plt Count 226 MPV 10.0 Immature Gran % (Auto) 0.5 H Neut % (Auto) 75.1 H Lymph % (Auto) 15.9 L [place] % (Auto) 6.7 Eos % (Auto) 1.5 Baso % (Auto) 0.3 Lymph # (Auto) 1.8 [place] # (Auto) 0.7 Eos # (Auto) 0.2 Baso # (Auto) 0.0 Abs Immat Gran (auto) 0.05 H Absolute Neuts (auto) 8.3 Absolute Nucleated RBC 0.000 Nucleated RBC % (auto) 0.0 Anion Gap 14 Estim Creat Clear Calc 111.6 Estimated GFR > 60 Random Glucose 107 Lactic Acid 0.6 Calcium 9.2 Total Bilirubin 0.7 Direct Bilirubin 0.3 AST 28 ALT 22 Alkaline Phosphatase 85 Total Protein 7.0 Albumin 4.2 Beta HCG, Quant < 2 Urine Color Urine Appearance Urine pH Ur Specific [place] Urine Protein Urine Glucose (UA) Urine Ketones Urine Blood Urine Nitrite Ur Leukocyte Esterase Urine RBC Urine WBC Ur Squamous Epith Cells Urine Bacteria Hyaline Casts Urine Test COVID-19 ([facility]) COVID-19 Clin Com 12/27/21 12/28/21 12/28/21 22:50 05:40 05:40 MCV MCH MCHC RDW Plt Count MPV Immature Gran % (Auto) Neut % (Auto) Lymph % (Auto) [place] % (Auto) Eos % (Auto) Baso % (Auto) Lymph # (Auto) [place] # (Auto) Eos # (Auto) Baso # (Auto) Abs Immat Gran (auto) Absolute Neuts (auto) Absolute Nucleated RBC Nucleated RBC % (auto) Anion Gap Estim Creat Clear Calc Estimated GFR Random Glucose Lactic Acid Calcium Total Bilirubin Direct Bilirubin AST ALT Alkaline Phosphatase Total Protein Albumin Beta HCG, Quant Urine Color Yellow Urine Appearance Clear Urine pH 6.0 Ur Specific [place] >= 1.030 H Urine Protein Negative Urine Glucose (UA) Negative Urine Ketones Negative Urine Blood Negative Urine Nitrite Negative Ur Leukocyte Esterase Small (1+) H Urine RBC 0-2 Urine WBC 6-10 H Ur Squamous Epith Cells 11-20 Urine Bacteria Trace Hyaline Casts 0-2 Urine Test NEGATIVE COVID-19 ([facility]) Negative COVID-19 Clin Com See Note 12/28/21 12/28/21 12/28/21 06:09 06:09 06:09 MCV 82.2 MCH 26.7 L MCHC 32.4 RDW 13.2 Plt Count 198 MPV 10.3 Immature Gran % (Auto) 0.3 Neut % (Auto) 61.2 Lymph % (Auto) 26.6 [place] % (Auto) 8.1 Eos % (Auto) 3.5 Baso % (Auto) 0.3 Lymph # (Auto) 2.0 [place] # (Auto) 0.6 Eos # (Auto) 0.3 Baso # (Auto) 0.0 Abs Immat Gran (auto) 0.02 Absolute Neuts (auto) 4.5 Absolute Nucleated RBC 0.000 Nucleated RBC % (auto) 0.0 Anion Gap 14 Estim Creat Clear Calc 105.5 100.7 Estimated GFR > 60 > 60 Random Glucose 86 Lactic Acid Calcium 8.5 D Total Bilirubin Direct Bilirubin AST ALT Alkaline Phosphatase Total Protein Albumin Beta HCG, Quant Urine Color Urine Appearance Urine pH Ur Specific [place] Urine Protein Urine Glucose (UA) Urine Ketones Urine Blood Urine Nitrite Ur Leukocyte Esterase Urine RBC Urine WBC Ur Squamous Epith Cells Urine Bacteria Hyaline Casts Urine Test COVID-19 ([facility]) COVID-19 Clin Com Microbiology Microbiology Results: Microbiology 12/27/21 17:12 Gram Stain - Final Finger Routine Culture - Preliminary Staphylococcus species Assessment and Plan (1) Tenosynovitis: Status: Acute Plan 26-year-old female with past medical history of asthma presented to the hospital today with a chief complaint of left index finger pain redness and swelling. ? noted to have left index finger cellulitis / tenosynovitis.? [facility] Left index finger cellulitis /tenosynovitis: Continue IV vancomycin and Zosyn Pain control plan for OR today DVT prophylaxis: early ambulation Code status:? Full code reason for continued hospitalization: plan for OR today Quality Stroke Does the patient have a stroke diagnosis?: No VTE Prior VTE?: No VTE Risk Level:: Medical - moderate - high VTE Device Contraindication: Treatment Not Indicated VTE Drug Contraindication: N/A - Med Ordered
[2021-12-28] MEDS: ALPRAZolam 0.25 MG TABLET PO ×2 (12:23→21:18)
--- NOTE | 2021-12-28 14:05 | W.PM.IDCN ---
History of Present Illness Data of Consult Service Date: 12/28/21 Requesting physician: Rene Kingston Primary Care Provider: Sylvia Page MD [facility] Reason for consult: left second finger redness She presents with left second finger redness and pain. She has no fever or chills. She denies injury but thought she may have been bit by spider while sleeping and woke up with finger redness Review of Systems Review of Systems: Yes all other systems are reviewed and are negative PMFSH Family History Family history: reviewed and not pertinent Social History Social History Household Members: Family Housing: House Do you presently have visiting nurse or other home services: No Alcohol intake: never Patient Tobacco Use Status: Current someday Tobacco user Tobacco use type: Cigarette Cigarettes Per Day: 2 Smoked in Last 30 Days: Yes Patient Interested in Nicotine Replacement: No Patient Given Instructions on How to Stop Smoking: No Second Hand Smoke Exposure: Yes Use of substances other than those prescribed or required for medical reasons: No Substance Use Type: Marijuana Currently Displaying Signs/Symptoms of Drug Intoxication Withdrawal: No Have you been hit, kicked, punched, or otherwise hurt by someone within the past year? If so, by whom?: No Do you feel safe in your current relationship?: Yes Is there a partner from a previous relationship who is making you feel unsafe now?: No Are you made to feel afraid or neglected: No Advance Directives: No Advance Directives Information Provided: No Do you have thoughts of harming others: None Do you have a plan to hurt others: No Plan Recently lost weight without trying: No How much weight loss: Not applicable Eating poorly because of decreased appetite: No Nutrition screen score: 0 Nutrition Risks: No Nutritional Risk Patient : No : No Poor oral hygiene: No service: No Current occupational status: disabled Meds Allergies Allergy/AdvReac Type Severity Reaction Status Date / Time butalbital [From FIORICET] Allergy Unknown LIP Verified 12/28/21 13:10 SWELLING oxycodone Allergy Itching Verified 11/19/21 17:13 shellfish derived Allergy Swelling/ra Verified 12/28/21 13:10 sh codeine Allergy Unknown itching Uncoded 11/19/21 17:13 Active Medications: Current Medications Acetaminophen (Acetaminophen 325 Mg Tablet) 650 mg PO Q6H PRN PRN Reason: Pain, Mild (Pain Scale 1-3) Last Admin: 12/28/21 09:15 Dose: 650 mg Alprazolam (Alprazolam 0.25 Mg Tablet) 0.25 mg PO TID PRN PRN Reason: anxiety Last Admin: 12/28/21 12:23 Dose: 0.25 mg Docusate Sodium (Docusate Sodium 100 Mg Capsule) 100 mg PO DAILY PRN PRN Reason: Constipation Hydromorphone HCl (Hydromorphone Hcl 1 Mg/Ml Syringe) 0.5 mg IVPUSH Q4H PRN; Protocol PRN Reason: Pain, Severe (Pain Scale 7-10) Last Admin: 12/28/21 10:25 Dose: 0.5 mg Sodium Chloride (Ns) 1,000 mls @ 100 mls/hr IVCONT .Q10H [facility] Last Admin: 12/28/21 06:16 Dose: 100 mls/hr Vancomycin HCl 1,000 mg/ (Sodium Chloride) 270 mls @ 270 mls/hr IV Q12H [facility] Last Infusion: 12/28/21 10:53 Dose: Infused Piperacillin Sod/Tazobactam (Sod 3.375 gm/ Sodium Chloride) 50 mls @ 100 mls/hr IV Q6H [facility] Last Infusion: 12/28/21 13:01 Dose: Infused Melatonin (Melatonin 3 Mg Tablet) 6 mg PO BEDTIME PRN PRN Reason: Insomnia Pharmacy Consult (Consult Rx Vancomycin Dosing) 1 each MISCELLANE DAILY PRN PRN Reason: Consult order Sodium Chloride (0.9 % Sodium Chloride Flush 3 Ml Syringe) 3 ml IVFLUSH QSHIFT [facility] Last Admin: 12/28/21 14:05 Dose: Not Given Home Medications Medication Instructions Recorded Confirmed Last Taken Type No Known Home Meds 12/27/21 12/27/21 Unknown History Physical Exam Vital Signs: Vital Signs: Last Vital Signs Temp 97.6 F 12/28/21 07:20 Pulse 88 12/28/21 07:20 Resp 17 12/28/21 07:20 BP 128/83 12/28/21 07:20 Pulse Ox 99 12/28/21 07:20 O2 Del Method 12/28/21 07:20 BMI result Body Mass Index 30.2 Const: General: cooperative HEENT: Head: Yes normal to inspection Face and sinus: Yes normal facial exam Mouth: Normal oral and palatal mucosa present Teeth and gingiva: dentition normal Eyes: General: appearance normal, both eyes and all related structures Pupils: Equal, round and reactive pupils present Resp: Effort & Inspection: normal respiratory effort Cardio: Rate: regular rate Rhythm: regular rhythm GI: Palpation (GI): Soft to palpation and nontender : General: Yes no CVA tenderness Back/Spine/Pelvis: Back: no CVA tenderness Skin: General skin exam: no rashes or lesions noted Neuro: General: moves all extremities Cranial nerves: Yes Equal, round and reactive pupils present Extrem: Other: left second finger reddened and doesnt bend well Psych: Appearance: grossly normal Results Labs CBC & Chem 7: 12/28/21 06:09 12/28/21 06:09 Labs: Short CBC 12/27/21 12/28/21 Range/Units 18:46 06:09 WBC 11.0 H 7.4 (4.8-10.8) X10*3/uL Hgb 13.0 12.0 (12.0-16.0) g/dl Hct 39.5 37.0 (37.0-47.0) % Plt Count 226 198 (160-400) X10*3/uL BMP 12/27/21 12/28/21 12/28/21 18:46 06:09 06:09 Sodium 138 139 Potassium 3.8 4.0 Chloride 105 107 Carbon Dioxide 23 22 BUN 9 10 Creatinine 0.64 0.63 0.66 Calcium 9.2 8.5 D Liver Function 12/27/21 Range/Units 18:46 Total Bilirubin 0.7 (0.0-1.0) mg/dL Direct Bilirubin 0.3 (0.0-0.5) mg/dL AST 28 (5-31) U/L ALT 22 (0-31) U/L Alkaline Phosphatase 85 (39-117) U/L Albumin 4.2 (3.5-5.0) g/dL Urine 12/28/21 Range/Units 05:40 Urine Color Yellow Urine Appearance Clear Urine pH 6.0 (5.0-9.0) Ur Specific [place] >= 1.030 H (1.005-1.025) Urine Protein Negative (Neg-Trace) mg/dL Urine Glucose (UA) Negative (Negative) mg/dL Microbiology Microbiology Results: Microbiology 12/27/21 17:12 Finger Gram Stain - Final 12/27/21 17:12 Finger Routine Culture - Preliminary Staphylococcus species Assessment and Plan (1) Tenosynovitis: Status: Acute There is finger cellulitis and tenosynovitis. So far staph or MRSA can be concern as appearing from wound She denies MRSA, Hepatitis C or HIV. Plan Would continue Vancomycin and Zosyn for now. Would await final debridement culture and adjust antibiotics May need MRI if no definitive probe to bone which would indicate osteomyelitis.
--- NOTE | 2021-12-28 15:45 | MHC.SHP ---
Pre-Procedural Eval Section A Date of Service: 12/28/21 The patient is an INPATIENT: No Changes since office visit: Yes Patient answered all questions; No Cold of Flu in the past 2 weeks, No New Medical Problems and No Changes in Medication The History & Physical has been completed within 30 days and I have reviewed it.: Yes Section B Chief Complaint: Cellulitis Allergies: Allergies Allergy/AdvReac Type Severity Reaction Status Date / Time butalbital [From FIORICET] Allergy Unknown LIP Verified 12/28/21 13:10 SWELLING oxycodone Allergy Itching Verified 11/19/21 17:13 shellfish derived Allergy Swelling/ra Verified 12/28/21 13:10 sh codeine Allergy Unknown itching Uncoded 11/19/21 17:13 Plan I have reviewed the history and physical and performed a pertinent physical examination on my patient. No changes have occurred unless specified.
--- NOTE | 2021-12-28 15:50 | P.CONAN_ITS ---
HPI - Anesthesia Eval Consult details Narrative: 26 F for I and D left Index finger Asthma, Smoker PMFSH Active Problems Active Problems: All Active Problems (Updated 12/27/21 @ 20:34 by TERRY Gupta) Tenosynovitis (Acute) Family History Family history of problems with anesthesia: No Surgical History History of Problems with Anesthesia: No Social History Social History Household Members: Family Housing: House Do you presently have visiting nurse or other home services: No Alcohol intake: never Patient Tobacco Use Status: Current someday Tobacco user Tobacco use type: Cigarette Cigarettes Per Day: 2 Smoked in Last 30 Days: Yes Patient Interested in Nicotine Replacement: No Patient Given Instructions on How to Stop Smoking: No Second Hand Smoke Exposure: Yes Use of substances other than those prescribed or required for medical reasons: No Substance Use Type: Marijuana Currently Displaying Signs/Symptoms of Drug Intoxication Withdrawal: No Have you been hit, kicked, punched, or otherwise hurt by someone within the past year? If so, by whom?: No Do you feel safe in your current relationship?: Yes Is there a partner from a previous relationship who is making you feel unsafe now?: No Are you made to feel afraid or neglected: No Are you DNR?: No Advance Directives: No Advance Directives Information Provided: No Do you have thoughts of harming others: None Do you have a plan to hurt others: No Plan Recently lost weight without trying: No How much weight loss: Not applicable Eating poorly because of decreased appetite: No Nutrition screen score: 0 Nutrition Risks: No Nutritional Risk Patient : No : No Poor oral hygiene: No service: No Current occupational status: disabled Meds Allergies Allergy/AdvReac Type Severity Reaction Status Date / Time butalbital [From FIORICET] Allergy Unknown LIP Verified 12/28/21 13:10 SWELLING oxycodone Allergy Itching Verified 11/19/21 17:13 shellfish derived Allergy Swelling/ra Verified 12/28/21 13:10 sh codeine Allergy Unknown itching Uncoded 11/19/21 17:13 Active Medications: Current Medications Acetaminophen (Acetaminophen 325 Mg Tablet) 650 mg PO Q6H PRN PRN Reason: Pain, Mild (Pain Scale 1-3) Last Admin: 12/28/21 09:15 Dose: 650 mg Alprazolam (Alprazolam 0.25 Mg Tablet) 0.25 mg PO TID PRN PRN Reason: anxiety Last Admin: 12/28/21 12:23 Dose: 0.25 mg Docusate Sodium (Docusate Sodium 100 Mg Capsule) 100 mg PO DAILY PRN PRN Reason: Constipation Hydromorphone HCl (Hydromorphone Hcl 1 Mg/Ml Syringe) 0.5 mg IVPUSH Q4H PRN; Protocol PRN Reason: Pain, Severe (Pain Scale 7-10) Last Admin: 12/28/21 10:25 Dose: 0.5 mg Sodium Chloride (Ns) 1,000 mls @ 100 mls/hr IVCONT .Q10H [facility] Last Admin: 12/28/21 06:16 Dose: 100 mls/hr Vancomycin HCl 1,000 mg/ (Sodium Chloride) 270 mls @ 270 mls/hr IV Q12H [facility] Last Infusion: 12/28/21 10:53 Dose: Infused Piperacillin Sod/Tazobactam (Sod 3.375 gm/ Sodium Chloride) 50 mls @ 100 mls/hr IV Q6H [facility] Last Infusion: 12/28/21 13:01 Dose: Infused Melatonin (Melatonin 3 Mg Tablet) 6 mg PO BEDTIME PRN PRN Reason: Insomnia Pharmacy Consult (Consult Rx Vancomycin Dosing) 1 each MISCELLANE DAILY PRN PRN Reason: Consult order Sodium Chloride (0.9 % Sodium Chloride Flush 3 Ml Syringe) 3 ml IVFLUSH QSHIFT [facility] Last Admin: 12/28/21 14:05 Dose: Not Given Home Medications Medication Instructions Recorded Confirmed Last Taken Type No Known Home Meds 12/27/21 12/27/21 Unknown History Exam Exam Date and Time: December 28, 2021 1550 Height,Weight and Vital Signs: Height 4 ft 9 in Weight 63.5 kg Last Vital Signs Temp 97.6 F 12/28/21 15:15 Pulse 62 12/28/21 15:15 Resp 17 12/28/21 15:15 BP 106/65 12/28/21 15:15 Pulse Ox 99 12/28/21 15:15 O2 Del Method 12/28/21 15:15 Pertinent Lab Results Pertinent Lab Results: Laboratory Tests 12/27/21 12/27/21 12/27/21 18:46 18:46 18:46 WBC 11.0 H RBC 4.92 Hgb 13.0 Hct 39.5 MCV 80.3 MCH 26.4 L MCHC 32.9 RDW 13.2 Plt Count 226 MPV 10.0 Immature Gran % (Auto) 0.5 H Neut % (Auto) 75.1 H Lymph % (Auto) 15.9 L [place] % (Auto) 6.7 Eos % (Auto) 1.5 Baso % (Auto) 0.3 Lymph # (Auto) 1.8 [place] # (Auto) 0.7 Eos # (Auto) 0.2 Baso # (Auto) 0.0 Abs Immat Gran (auto) 0.05 H Absolute Neuts (auto) 8.3 Absolute Nucleated RBC 0.000 Nucleated RBC % (auto) 0.0 Sodium 138 Potassium 3.8 Chloride 105 Carbon Dioxide 23 Anion Gap 14 BUN 9 Creatinine 0.64 Estim Creat Clear Calc 111.6 Estimated GFR > 60 Random Glucose 107 Lactic Acid 0.6 Calcium 9.2 Total Bilirubin 0.7 Direct Bilirubin 0.3 AST 28 ALT 22 Alkaline Phosphatase 85 Total Protein 7.0 Albumin 4.2 Beta HCG, Quant < 2 Urine Color Urine Appearance Urine pH Ur Specific [place] Urine Protein Urine Glucose (UA) Urine Ketones Urine Blood Urine Nitrite Ur Leukocyte Esterase Urine RBC Urine WBC Ur Squamous Epith Cells Urine Bacteria Hyaline Casts Urine Test COVID-19 ([facility]) COVID-19 Clin Com 12/27/21 12/28/21 12/28/21 22:50 05:40 05:40 WBC RBC Hgb Hct MCV MCH MCHC RDW Plt Count MPV Immature Gran % (Auto) Neut % (Auto) Lymph % (Auto) [place] % (Auto) Eos % (Auto) Baso % (Auto) Lymph # (Auto) [place] # (Auto) Eos # (Auto) Baso # (Auto) Abs Immat Gran (auto) Absolute Neuts (auto) Absolute Nucleated RBC Nucleated RBC % (auto) Sodium Potassium Chloride Carbon Dioxide Anion Gap BUN Creatinine Estim Creat Clear Calc Estimated GFR Random Glucose Lactic Acid Calcium Total Bilirubin Direct Bilirubin AST ALT Alkaline Phosphatase Total Protein Albumin Beta HCG, Quant Urine Color Yellow Urine Appearance Clear Urine pH 6.0 Ur Specific [place] >= 1.030 H Urine Protein Negative Urine Glucose (UA) Negative Urine Ketones Negative Urine Blood Negative Urine Nitrite Negative Ur Leukocyte Esterase Small (1+) H Urine RBC 0-2 Urine WBC 6-10 H Ur Squamous Epith Cells 11-20 Urine Bacteria Trace Hyaline Casts 0-2 Urine Test NEGATIVE COVID-19 ([facility]) Negative COVID-19 Clin Com See Note 12/28/21 12/28/21 12/28/21 06:09 06:09 06:09 WBC 7.4 RBC 4.50 Hgb 12.0 Hct 37.0 MCV 82.2 MCH 26.7 L MCHC 32.4 RDW 13.2 Plt Count 198 MPV 10.3 Immature Gran % (Auto) 0.3 Neut % (Auto) 61.2 Lymph % (Auto) 26.6 [place] % (Auto) 8.1 Eos % (Auto) 3.5 Baso % (Auto) 0.3 Lymph # (Auto) 2.0 [place] # (Auto) 0.6 Eos # (Auto) 0.3 Baso # (Auto) 0.0 Abs Immat Gran (auto) 0.02 Absolute Neuts (auto) 4.5 Absolute Nucleated RBC 0.000 Nucleated RBC % (auto) 0.0 Sodium 139 Potassium 4.0 Chloride 107 Carbon Dioxide 22 Anion Gap 14 BUN 10 Creatinine 0.63 0.66 Estim Creat Clear Calc 105.5 100.7 Estimated GFR > 60 > 60 Random Glucose 86 Lactic Acid Calcium 8.5 D Total Bilirubin Direct Bilirubin AST ALT Alkaline Phosphatase Total Protein Albumin Beta HCG, Quant Urine Color Urine Appearance Urine pH Ur Specific [place] Urine Protein Urine Glucose (UA) Urine Ketones Urine Blood Urine Nitrite Ur Leukocyte Esterase Urine RBC Urine WBC Ur Squamous Epith Cells Urine Bacteria Hyaline Casts Urine Test COVID-19 ([facility]) COVID-19 Clin Com Airway Mallampati Class: III TM Dist: >3cm Neck ROM: Full Loose/Missing/Broken Teeth: Yes Heart: S1,S2 Lungs: b/l breath sounds Assessment and Plan Assessment Anesthesia Assessment: Anesthesia Plan Discussed and Chart Reviewed Final Anesthetic Review Family History of Problems with Anesthesia: No History of Problems with Anesthesia: No NPO: Yes ASA Class: II and Emergency Final Preanesthetic Review: Meds/Allgs Chart Reviewed, Consent Obtained/Reviewed and Anes Risks/Benef Reviewed Patient Risk: Intermediate Procedure Risk: Intermediate Anesthetic Plan Anesthetic Plan: MAC: Disposition: Standard PACU
[2021-12-28] MEDS: Melatonin 3 MG TABLET 6 MG PO (21:17)
[2021-12-29] MEDS: Piperacillin Sodium/Tazobactam 3.375 GM in 0.9 % Sodium Chloride 50 ML IV ×5 (00:32→23:44)
[2021-12-29] MEDS: Acetaminophen 325 MG TABLET 650 MG PO ×4 (03:39→21:52)
[2021-12-29] MEDS: HYDROmorphone HCl 1 MG/ML SYRINGE 0.5 MG IVPUSH ×5 (03:39→20:48)
[2021-12-29 04:00] VITALS: BP 117/73; PULSE 54; RESP 18; TEMP 36.1; O2SAT 97
[2021-12-29] MEDS: ondansetron HCL 4 MG/2 ML VIAL IVPUSH ×2 (06:03→09:03)
[2021-12-29] MEDS: 0.9 % Sodium Chloride 1,000 ML 100 ML IVCONT (06:03)
[2021-12-29 06:59] LABS: Hematocrit 33.4 % (37.0-47.0); Hemoglobin 10.7 g/dl (12.0-16.0); Mean Corpuscular Hemoglobin 26.4 pg (27.0-33.0); Mean Corpuscular Volume 82.5 fL (80.0-98.0); Mean Platelet Volume 10.6 fL (9.4-12.3); Platelet Count 181 X10*3/uL (160-400); Red Blood Count 4.05 X10*6/uL (4.20-5.50); Red Cell Distribution Width 13.3 % (11.0-16.0); White Blood Count 6.5 X10*3/uL (4.8-10.8)
[2021-12-29 07:08] LABS: Anion Gap 14 (12-20); Blood Urea Nitrogen 9 mg/dL (9-16); Calcium 8.4 mg/dL (8.4-10.2); Carbon Dioxide 21 mmol/L (22-29); Chloride 110 mmol/L (96-108); Creatinine Clr Calc Pharmacy 99.2; Estimated Glomerular Filt Rate > 60; Glucose Fasting 68 mg/dL (60-99); Potassium 4.2 mmol/L (3.3-5.1); Sodium 141 mmol/L (135-145)
[2021-12-29] MEDS: ALPRAZolam 0.25 MG TABLET PO ×3 (07:46→23:50)
[2021-12-29 07:48] VITALS: BP 124/71; PULSE 61; RESP 20; TEMP 36.4; O2SAT 98
[2021-12-29] MEDS: vancomycin HCL 1,250 MG in 0.9 % Sodium Chloride 250 ML 166.67 MG IV (09:07)
[2021-12-29 10:49] VITALS: BP 106/68; PULSE 55; RESP 20; TEMP 36.2; O2SAT 100
--- NOTE | 2021-12-29 11:41 | HO.PM.IMPN ---
Subjective Subjective Date of Service: 12/29/21 Interval History: cc: finger pain and swelling interval history: finger pain Cardiovascular Cardiovascular: Reports no additional cardiovascular complaints Respiratory Respiratory: Reports no additional respiratory complaints Physical Exam Vital Signs: Vital Signs: Last Vital Signs Temp 97.2 F 12/29/21 10:49 Pulse 55 12/29/21 10:49 Resp 20 12/29/21 10:49 BP 106/68 12/29/21 10:49 Pulse Ox 100 12/29/21 10:49 O2 Del Method 12/29/21 10:49 BMI result Body Mass Index 30.2 General: AO X 3, no acute distress Resp: CTA bilateral, no accessory muscles used CVS: S1,S2,RRR GI: soft, non tender, non distended Neuro: motor grossly intact, alert Psych: appropriate affect, appropriate insight left hand dressing on, not examined Objective Data Active Medications Acetaminophen (Acetaminophen 325 Mg Tablet) 650 mg PO Q6H PRN PRN Reason: Pain, Mild (Pain Scale 1-3) Last Admin: 12/29/21 09:06 Dose: 650 mg Documented By: SARITHA Alprazolam (Alprazolam 0.25 Mg Tablet) 0.25 mg PO TID PRN PRN Reason: anxiety Last Admin: 12/29/21 07:46 Dose: 0.25 mg Documented By: VICTOR HUGO Docusate Sodium (Docusate Sodium 100 Mg Capsule) 100 mg PO DAILY PRN PRN Reason: Constipation Hydromorphone HCl (Hydromorphone Hcl 1 Mg/Ml Syringe) 0.5 mg IVPUSH Q4H PRN; Protocol PRN Reason: Pain, Severe (Pain Scale 7-10) Last Admin: 12/29/21 07:45 Dose: 0.5 mg Documented By: VICTOR HUGO Sodium Chloride (Ns) 1,000 mls @ 100 mls/hr IVCONT .Q10H [facility] Last Admin: 12/29/21 06:03 Dose: 100 mls/hr Documented By: LUIS Vancomycin HCl 1,250 mg/ (Sodium Chloride) 250 mls @ 166.667 mls/hr IV Q12H [facility] Last Admin: 12/29/21 09:07 Dose: 166.67 mls/hr Documented By: SARITHA Piperacillin Sod/Tazobactam (Sod 3.375 gm/ Sodium Chloride) 50 mls @ 100 mls/hr IV Q6H [facility] Melatonin (Melatonin 3 Mg Tablet) 6 mg PO BEDTIME PRN PRN Reason: Insomnia Last Admin: 12/28/21 21:17 Dose: 6 mg Documented By: LUIS Ondansetron HCl (Ondansetron Hcl 4 Mg/2 Ml Vial) 4 mg IVPUSH Q8H PRN PRN Reason: Nausea Last Admin: 12/29/21 09:03 Dose: 4 mg Documented By: SARITHA Pharmacy Consult (Consult Rx Vancomycin Dosing) 1 each MISCELLANE DAILY PRN PRN Reason: Consult order Sodium Chloride (0.9 % Sodium Chloride Flush 3 Ml Syringe) 3 ml IVFLUSH QSHIFT [facility] Last Admin: 12/29/21 07:19 Dose: Not Given Documented By: SARITHA Non-Admin Reason: IV Running Labs CBC & Chem 7: 12/29/21 05:14 12/29/21 05:14 Labs: Laboratory Results - last 24 hr 12/29/21 12/29/21 12/29/21 05:14 05:14 05:14 MCV 82.5 MCH 26.4 L MCHC 32.0 RDW 13.3 Plt Count 181 MPV 10.6 Absolute Nucleated RBC 0.000 Nucleated RBC % (auto) 0.0 Anion Gap 14 Estim Creat Clear Calc 99.2 Estimated GFR > 60 Fasting Glucose 68 Calcium 8.4 Vancomycin Trough 11.0 Microbiology Microbiology Results: Microbiology 12/28/21 16:37 Gram Stain - Final Finger Left Index Routine Culture - Preliminary Culture in progress. 12/27/21 18:38 Blood Culture - Preliminary Blood - Venous Prelim: GNR Gram Stain only 12/27/21 17:12 Gram Stain - Final Finger Routine Culture - Final Methicillin Res Staph Aureus 12/27/21 18:46 Blood Culture - Preliminary Blood - Venous No growth after 24 hours. Assessment and Plan (1) Tenosynovitis: Status: Acute Plan 26-year-old female with past medical history of asthma presented to the hospital today with a chief complaint of left index finger pain redness and swelling. ? noted to have left index finger cellulitis / tenosynovitis.? Admitted for further management.? Left index finger cellulitis /tenosynovitis: Continue IV vancomycin and Zosyn blood culture 1/2 GNR, wound culture MRSA s/p I and D 12/28/21 Pain control DVT prophylaxis: early ambulation Code status:? Full code reason for continued hospitalization: awaiting cultures, ongoing iv abx for significant hand infection Quality Stroke Does the patient have a stroke diagnosis?: No VTE Prior VTE?: No VTE Risk Level:: Medical - moderate - high VTE Device Contraindication: Treatment Not Indicated VTE Drug Contraindication: N/A - Med Ordered
--- NOTE | 2021-12-29 14:27 | MHC.CM.PN ---
PATIENT HAD I&D OF FINGER LIKELY TO DC HOME Sunday12/30/21 ON PO ABX.
[2021-12-29 15:23] VITALS: BP 116/64; PULSE 53; RESP 17; TEMP 37.1; O2SAT 98
--- NOTE | 2021-12-29 16:02 | PM.PNORT ---
Subjective Subjective Date of Service: 12/29/21 Interval history: POD 1 s/p I&D left indez finger no overnight events she has some pain and swelling. Tolerating splint ok Physical Exam Vital Signs: Vital Signs: Last Vital Signs Temp 98.8 F 12/29/21 15:23 Pulse 53 12/29/21 15:23 Resp 17 12/29/21 15:23 BP 116/64 12/29/21 15:23 Pulse Ox 98 12/29/21 15:23 O2 Del Method 12/29/21 15:23 BMI result Body Mass Index 30.2 Extrem: Other: Left hand index finger packing in place. No active drainage. She continues to have swelling Able to actively flex and extend at the DIP, PIP, and MCP. Minimal tenderness to palpation of the dorsal or volar aspect along the tendon sheaths. Capillary refill is brisk. Sensation is reportedly intact. Procedures Date of Service Date of Service: 12/29/21 Progress Note: A&P Assessment and plan (1) Cellulitis of left finger: Status: Acute Assessment and Plan: continue abx packing removed and dry dressing applied continue to elevate ok to go home when medically cleared-f.u with ortho in one week Time Spent With Patient Time: Total time spent is greater than 50% in coordination of care (as documented) at patient's floor/unit and/or counseling patient: Quality Stroke Does the patient have a stroke diagnosis?: No VTE Prior VTE?: No VTE Risk Level:: Medical - moderate - high VTE Device Contraindication: Treatment Not Indicated VTE Drug Contraindication: N/A - Med Ordered
[2021-12-29 19:02] VITALS: BP 131/86; PULSE 61; RESP 15; TEMP 36.6; O2SAT 98
[2021-12-29] MEDS: diphenhydrAMINE HCL 25 MG TABLET PO (20:48)
[2021-12-29] MEDS: Melatonin 3 MG TABLET 6 MG PO (20:48)
[2021-12-29] MEDS: 0.9 % Sodium Chloride Flush 3 ML SYRINGE IVFLUSH (20:49)
[2021-12-29] MEDS: vancomycin HCL 1,250 MG in 0.9 % Sodium Chloride 250 ML 250 MG IV (20:49)
[2021-12-29 23:42] VITALS: BP 115/61; PULSE 50; RESP 18; TEMP 36.3; O2SAT 99
[2021-12-30] MEDS: HYDROmorphone HCl 1 MG/ML SYRINGE 0.5 MG IVPUSH ×6 (00:23→23:27)
[2021-12-30 03:46] VITALS: BP 114/58; PULSE 51; RESP 18; TEMP 36.7; O2SAT 98
[2021-12-30] MEDS: Piperacillin Sodium/Tazobactam 3.375 GM in 0.9 % Sodium Chloride 50 ML IV ×4 (05:26→23:27)
[2021-12-30] MEDS: ondansetron HCL 4 MG/2 ML VIAL IVPUSH ×3 (05:29→23:44)
[2021-12-30 06:14] LABS: Hematocrit 33.9 % (37.0-47.0); Hemoglobin 10.8 g/dl (12.0-16.0); Mean Corpuscular HGB Conc 31.9 g/dl (31.0-35.0); Mean Corpuscular Hemoglobin 26.3 pg (27.0-33.0); Mean Corpuscular Volume 82.5 fL (80.0-98.0); Mean Platelet Volume 10.7 fL (9.4-12.3); Platelet Count 219 X10*3/uL (160-400); Red Blood Count 4.11 X10*6/uL (4.20-5.50); Red Cell Distribution Width 13.2 % (11.0-16.0); White Blood Count 5.3 X10*3/uL (4.8-10.8)
[2021-12-30 06:50] LABS: Anion Gap 12 (12-20); Blood Urea Nitrogen 7 mg/dL (9-16); Calcium 8.4 mg/dL (8.4-10.2); Carbon Dioxide 23 mmol/L (22-29); Chloride 108 mmol/L (96-108); Creatinine Clr Calc Pharmacy 93.6; Estimated Glomerular Filt Rate > 60; Glucose Fasting 95 mg/dL (60-99); Sodium 139 mmol/L (135-145)
--- NOTE | 2021-12-30 06:52 | HO.POSTANES ---
Post Anesthesia Evaluation Post Anesthesia Evaluation Vital Signs: Vital Signs Temp Pulse Resp BP Pulse Ox O2 Del Method 12/30/21 03:46 98.0 F 51 18 114/58 L 98 Room Air 12/29/21 23:42 97.3 F 50 18 115/61 99 Room Air 12/29/21 19:02 97.8 F 61 15 131/86 98 Room Air Anesthesia: Monitored Mental Status: Awake Pain Control: Satisfactory Nausea/Vomiting: None Hydration: Adequate Anesthesia-Related Issues: No Anes. Related Issues
[2021-12-30 07:44] VITALS: BP 106/61; PULSE 94; RESP 17; TEMP 36.4; O2SAT 98
[2021-12-30 07:45] LABS: Vancomycin Trough 12.1 mcg/mL (10.0-20.0)
[2021-12-30] MEDS: Acetaminophen 325 MG TABLET 650 MG PO ×2 (08:36→17:45)
[2021-12-30] MEDS: ALPRAZolam 0.25 MG TABLET PO ×2 (08:36→17:43)
[2021-12-30] MEDS: 0.9 % Sodium Chloride Flush 3 ML SYRINGE IVFLUSH ×3 (08:37→23:48)
[2021-12-30] MEDS: vancomycin HCL 1,250 MG in 0.9 % Sodium Chloride 250 ML 166.66 MG IV ×2 (08:37→21:40)
[2021-12-30] MEDS: oxyCODONE HCl Immed Release 5 MG TABLET PO ×4 (09:31→21:40)
--- NOTE | 2021-12-30 09:47 | HO.PM.IMPN ---
Subjective Subjective Date of Service: 12/30/21 Interval History: cc: finger pain and swelling interval history: finger pain Cardiovascular Cardiovascular: Reports no additional cardiovascular complaints Respiratory Respiratory: Reports no additional respiratory complaints Physical Exam Vital Signs: Vital Signs: Last Vital Signs Temp 97.5 F 12/30/21 07:44 Pulse 94 12/30/21 07:44 Resp 17 12/30/21 07:44 BP 106/61 12/30/21 07:44 Pulse Ox 98 12/30/21 07:44 O2 Del Method 12/30/21 07:44 BMI result Body Mass Index 30.2 Extrem: Other: Left hand index finger packing in place. No active drainage. She continues to have swelling Able to actively flex and extend at the DIP, PIP, and MCP. Minimal tenderness to palpation of the dorsal or volar aspect along the tendon sheaths. Capillary refill is brisk. Sensation is reportedly intact. Objective Data Active Medications Acetaminophen (Acetaminophen 325 Mg Tablet) 650 mg PO Q6H PRN PRN Reason: Pain, Mild (Pain Scale 1-3) Last Admin: 12/30/21 08:36 Dose: 650 mg Documented By: RUBEN Alprazolam (Alprazolam 0.25 Mg Tablet) 0.25 mg PO TID PRN PRN Reason: anxiety Last Admin: 12/30/21 08:36 Dose: 0.25 mg Documented By: RUBEN Docusate Sodium (Docusate Sodium 100 Mg Capsule) 100 mg PO DAILY PRN PRN Reason: Constipation Hydromorphone HCl (Hydromorphone Hcl 1 Mg/Ml Syringe) 0.5 mg IVPUSH Q4H PRN; Protocol PRN Reason: Pain, Severe (Pain Scale 7-10) Last Admin: 12/30/21 09:24 Dose: 0.5 mg Documented By: RUBEN Vancomycin HCl 1,250 mg/ (Sodium Chloride) 250 mls @ 166.667 mls/hr IV Q12H [facility] Last Admin: 12/30/21 08:37 Dose: 166.66 mls/hr Documented By: RUBEN Piperacillin Sod/Tazobactam (Sod 3.375 gm/ Sodium Chloride) 50 mls @ 100 mls/hr IV Q6H [facility] Last Infusion: 12/30/21 06:17 Dose: 0 mls/hr Documented By: HO.BOURQC Melatonin (Melatonin 3 Mg Tablet) 6 mg PO BEDTIME PRN PRN Reason: Insomnia Last Admin: 12/29/21 20:48 Dose: 6 mg Documented By: LUIS Ondansetron HCl (Ondansetron Hcl 4 Mg/2 Ml Vial) 4 mg IVPUSH Q8H PRN PRN Reason: Nausea Last Admin: 12/30/21 05:29 Dose: 4 mg Documented By: LUIS Oxycodone HCl (Oxycodone Hcl Immed Release 5 Mg Tablet) 5 mg PO Q4H PRN PRN Reason: moderate pain Last Admin: 12/30/21 09:31 Dose: 5 mg Documented By: RUBEN Pharmacy Consult (Consult Rx Vancomycin Dosing) 1 each MISCELLANE DAILY PRN PRN Reason: Consult order Sodium Chloride (0.9 % Sodium Chloride Flush 3 Ml Syringe) 3 ml IVFLUSH QSHIFT YOEL Last Admin: 12/30/21 08:37 Dose: 3 ml Documented By: RUBEN Labs CBC & Chem 7: 12/30/21 05:16 12/30/21 05:16 Labs: Laboratory Results - last 24 hr 12/30/21 12/30/21 12/30/21 05:16 05:16 07:02 MCV 82.5 MCH 26.3 L MCHC 31.9 RDW 13.2 Plt Count 219 MPV 10.7 Absolute Nucleated RBC 0.000 Nucleated RBC % (auto) 0.0 Anion Gap 12 Estim Creat Clear Calc 93.6 Estimated GFR > 60 Fasting Glucose 95 Calcium 8.4 Vancomycin Trough 12.1 Microbiology Microbiology Results: Microbiology 12/28/21 16:37 Gram Stain - Final Finger Left Index Routine Culture - Preliminary Staphylococcus species 12/27/21 18:46 Blood Culture - Preliminary Blood - Venous No growth after 48 hours. 12/27/21 18:38 Blood Culture - Preliminary Blood - Venous Prelim: GNR Gram Stain only 12/27/21 17:12 Gram Stain - Final Finger Routine Culture - Final Methicillin Res Staph Aureus Assessment and Plan (1) Tenosynovitis: Status: Acute Plan 26-year-old female with past medical history of asthma presented to the hospital today with a chief complaint of left index finger pain redness and swelling. ? noted to have left index finger cellulitis / tenosynovitis.? Admitted for further management.? Left index finger cellulitis /tenosynovitis: Continue IV vancomycin and Zosyn blood culture / GNR, wound culture MRSA s/p I and D 12/28/21 Pain control awaiting final blood cultures DVT prophylaxis: early ambulation Code status:? Full code reason for continued hospitalization: awaiting cultures, ongoing iv abx for significant hand infection Quality Stroke Does the patient have a stroke diagnosis?: No VTE Prior VTE?: No VTE Risk Level:: Medical - moderate - high VTE Device Contraindication: Treatment Not Indicated VTE Drug Contraindication: N/A - Med Ordered
--- NOTE | 2021-12-30 10:32 | P.CDIC_ITS ---
CDI Concurrent Query Documentation Clarification: PHYSICIAN'S DOCUMENTATION REQUEST Date of Query: 12/30/21 1032 Patient Name: Annette London Admit Date: 12/27/21 Dear Doctor, A review of the medical record indicates additional documentation may be needed. Please review below and update the documentation accordingly. Clinical Indicators: Other Clinical Notes Supporting Significance of the BMI: Risk Factors/Clinical Indicators/Treatments Per H&P: BMI 34.6 Height: 4ft 9in If possible, please provide an associated diagnosis related to the abnormal BMI, such as: BMI: * Obesity * Due to excess calories * Drug induced * Due to other cause * Severe or Morbid Obesity * Overweight Or: * BMI is not significant * Other?(please specify) * Unable to determine Use of terms such as suspected, likely, concern for, or probable (associated with a specific diagnosis that is being evaluated, monitored, or treated as if it exists) are acceptable and can be coded in the inpatient setting, when documented at the time of discharge. Thank you, Selma Adams MS, RN, CCRN Extension: [phone] Please use your independent medical judgment in providing your response. THIS QUERY IS PART OF THE PERMANENT MEDICAL RECORD Provider Response: Obesity
[2021-12-30 11:35] VITALS: BP 106/66; PULSE 76; RESP 18; TEMP 36.3; O2SAT 98
--- NOTE | 2021-12-30 11:35 | MHC.CM.PN ---
Plan for patient to discharge over the weekend. CM to follow for any d/c planning needs.
[2021-12-30 15:52] VITALS: BP 133/88; PULSE 65; RESP 17; TEMP 36.6; O2SAT 98
--- NOTE | 2021-12-30 15:57 | PM.IDPN ---
Subjective Subjective Date of Service: 12/30/21 Critical Care Time (minutes): 15 Comment: finger looks improved Objective Data Labs CBC & Chem 7: 12/30/21 05:16 12/30/21 05:16 Labs: Laboratory Results - last 24 hr 12/30/21 12/30/21 12/30/21 05:16 05:16 07:02 WBC 5.3 RBC 4.11 L Hgb 10.8 L Hct 33.9 L MCV 82.5 MCH 26.3 L MCHC 31.9 RDW 13.2 Plt Count 219 MPV 10.7 Absolute Nucleated RBC 0.000 Nucleated RBC % (auto) 0.0 Sodium 139 Potassium 4.0 Chloride 108 Carbon Dioxide 23 Anion Gap 12 BUN 7 L Creatinine 0.71 Estim Creat Clear Calc 93.6 Estimated GFR > 60 Fasting Glucose 95 Calcium 8.4 Vancomycin Trough 12.1 Microbiology Microbiology Results: Microbiology 12/27/21 18:38 Blood - Venous Blood Culture - Preliminary Gram negative robyn 12/28/21 16:37 Finger Left Index Gram Stain - Final 12/28/21 16:37 Finger Left Index Routine Culture - Preliminary Staphylococcus species 12/27/21 18:46 Blood - Venous Blood Culture - Preliminary No growth after 48 hours. 12/27/21 17:12 Finger Gram Stain - Final 12/27/21 17:12 Finger Routine Culture - Final Methicillin Res Staph Aureus Physical Exam Vital Signs: Vital Signs: Last Vital Signs Temp 97.8 F 12/30/21 15:52 Pulse 65 12/30/21 15:52 Resp 17 12/30/21 15:52 BP 133/88 12/30/21 15:52 Pulse Ox 98 12/30/21 15:52 O2 Del Method 12/30/21 15:52 BMI result Body Mass Index 30.2 Const: General: cooperative HEENT: Head: Yes normal to inspection Throat: Yes posterior oropharynx normal Resp: Effort & Inspection: normal respiratory effort Auscultation: clear to auscultation bilaterally GI: Other: improving erythema finger Assessment and Plan Assessment and plan (1) Cellulitis of left finger: Problem details: finger with MRSA and gram negative to be identified Surgery finished per patient. Status: Acute (2) Tenosynovitis: Status: Acute Plan Would probabley give po Doxycycline and Levaquin 750 mg daily for 14 days if organism not ID and sensi by tomorrow. Follow with Hand Surgery outpatient (there is no osteomyelitis seen) Time Spent With Patient Time: Total time spent is greater than 50% in coordination of care (as documented) at patient's floor/unit and/or counseling patient:
[2021-12-30 19:16] VITALS: BP 117/72; PULSE 50; RESP 17; TEMP 36.9; O2SAT 99
[2021-12-30] MEDS: Melatonin 3 MG TABLET 6 MG PO (21:40)
[2021-12-31] VITALS: BP 112/72; PULSE 50; RESP 18; TEMP 36.4; O2SAT 100
[2021-12-31] MEDS: oxyCODONE HCl Immed Release 5 MG TABLET PO ×3 (02:56→09:46)
[2021-12-31] MEDS: ALPRAZolam 0.25 MG TABLET PO (02:56)
[2021-12-31 03:38] VITALS: BP 120/70; PULSE 52; RESP 18; TEMP 36.6; O2SAT 100
[2021-12-31] MEDS: HYDROmorphone HCl 1 MG/ML SYRINGE 0.5 MG IVPUSH ×2 (04:01→07:49)
[2021-12-31] MEDS: Piperacillin Sodium/Tazobactam 3.375 GM in 0.9 % Sodium Chloride 50 ML IV (06:01)
--- NOTE | 2021-12-31 06:08 | PC.NURSE ---
pt states she has more pain in her wrist now.
[2021-12-31 07:06] LABS: Creatinine Clr Calc Pharmacy 87.5; Estimated Glomerular Filt Rate > 60
[2021-12-31] MEDS: 0.9 % Sodium Chloride Flush 3 ML SYRINGE IVFLUSH (07:50)
[2021-12-31] MEDS: vancomycin HCL 1,250 MG in 0.9 % Sodium Chloride 250 ML 166.66 MG IV (07:50)
[2021-12-31 08:00] VITALS: BP 128/76; PULSE 55; RESP 19; TEMP 36.9; O2SAT 99
[2021-12-31] MEDS: ondansetron HCL 4 MG/2 ML VIAL IVPUSH (08:47)
--- NOTE | 2021-12-31 10:50 | P.DS_ITS ---
DS: Providers Provider Date of Service: 12/31/21 Date of admission: 12/27/21 20:40 Primary care physician: Sylvia Page MD Consults: 12/27/21 20:53 Consult to Infectious Diseases Routine Consulting Provider: Rona Berkowitz Reason for consultation: Cellulitis/tenosinuvitis Consult to Orthopedics Routine Consulting Provider: Dustin Ramirez Reason for consultation: Tenosinuvitis of finger DS: Diagnosis Discharge Diagnosis (1) Cellulitis of left finger: Status: Acute (2) Tenosynovitis: Status: Acute DS: Summary Hospital Course Hospital Course: from initial hpi: Chief Complaint: ? Left index finger pain redness and swelling ?26-year-old female with past medical history of asthma presented to the hospital today with a chief complaint of left index finger pain redness and swelling.? Patient reports that for the past 1 week she has been having pain and swelling of his left index finger which has been gradually worsening, today she has severe pain hence decided come to the ER further evaluation.? Patient denies any fevers and chills.? Mentions that she probably thing she had a but bite - questions prior on the left index finger.? Denies any IV drug abuse.? Denies any nausea vomiting or diarrhea.? Denies any chest pain or palpitations.? Review of all other systems is negative except mentioned above ER course: Per ER team patient noted to have significant swelling of the left index finger, tried to do I&D on the dorsum of the finger, noted to have serosanguineous discharge.? Taken pictures and showed it to the orthopedics team Dr. Ramirez- suggested admission to the medicine service and to antibiotics and will possibly intervene in the morning, no overnight intervention recommended. Patient was given IV vancomycin and Zosyn and admitted to the hospital for further management. hospital course: Patient was admitted for left index finger cellulitis/ tenosynovitis with abscess. She was treated with vancomycin and Zosyn. She underwent incision and drainage on 12/28/2021, wound culture grew MRSA, 1/2 blood cultures grew Gram- negative rods and final cultures are still pending. Patient was seen by infectious disease recommended 14 days of doxycycline and levofloxacin, to be adjusted depending on results of blood culture. Patient will follow up with Orthopedics on 01/04/2022. She is feeling better will be discharged home. Time Spent with Patient Time attestation: Total time spent providing and/or coordinating discharge services: Discharge coordination time: Greater than 30 minutes Quality: Safe Use of Opioids Does Pt have an Active Cancer Diagnosis on the Problem List?: No Quality: Stroke Does the patient have a stroke diagnosis?: No Physical Exam Vital Signs: Vital Signs: Last Vital Signs Temp 98.5 F 12/31/21 08:00 Pulse 55 12/31/21 08:00 Resp 19 12/31/21 08:00 BP 128/76 12/31/21 08:00 Pulse Ox 99 12/31/21 08:00 O2 Del Method 12/31/21 08:00 BMI result Body Mass Index 30.2 Const: General: cooperative HEENT: Head: Yes normal to inspection Throat: Yes posterior oropharynx normal Resp: Effort & Inspection: normal respiratory effort Auscultation: clear to auscultation bilaterally GI: Other: improving erythema finger DS: Data Data Completed and Pending Labs on day of discharge: Laboratory Results - last 24 hr 12/31/21 05:45 Creatinine 0.76 Estim Creat Clear Calc 87.5 Estimated GFR > 60 Preliminary micro results at discharge 12/27/21 18:38 Blood Culture - Preliminary Blood - Venous Gram negative robyn 12/27/21 18:46 Blood Culture - Preliminary Blood - Venous No growth after 48 hours. Discharge Plan Discharge Patient Disposition: Home, Self-Care Discharge Diagnosis: cellulitis of finger Referrals: Sylvia Page MD [Primary Care Provider] - 1 Week Discharge Medications: New oxycodone 5 mg Tablet 5 mg PO Q4H PRN (Reason: moderate pain) Qty: 15 0RF Rx Instructions: Partial Fill upon patient request. doxycycline hyclate 100 mg tablet 100 mg PO BID Qty: 28 0RF levofloxacin 500 mg tablet 500 mg PO DAILY Qty: 14 0RF Discharge Orders: Discharge Order (Routine); Ordered 12/31/21 Ordered By: Rene Kingston Diet: Advance to usual diet Activity on Discharge: As tolerated Stand Alone Forms: Patient Portal Discharge page Activity Restrictions/Additional Instructions: Daily dry dressing changes to the finger-keep dry, do not soak Perform Gentle ROM of the finger No heavy lifting Follow up with Orthopedics Sunday01/04/22 Care Plan Goals: recovery Health Concerns: cellulitis, abscess Plan of Treatment: 14 days antibiotics, follow up culture and adjust as needed, follow up with ortho Assessment: see above
--- NOTE | 2021-12-31 11:12 | MHC.CM.PN ---
PT TO DC HOME TODAY WITH NO SERVICES PT TO ARRANGE TRANSPORT
--- NOTE | 2022-01-13 14:33 | P.OP_ITS ---
Operative Note Operative Note Date of Service: 01/13/22 Narrative: Date of Service: 12/28/21 Pre-op diagnosis: left index finger infection Post-op diagnosis: same Procedure: irrigation and debridement left index finger Surgeon: Dustin Ramirez MD Anesthesia: GETA and local Was an Life Skills Coordinator used for this Procedure?: No Estimated blood loss (mL): 20 IV fluids (mL): 500 Pathology: none sent Condition: stable Disposition: PACU Patient was brought to the operating room and placed supine on the hand table. She was prepped and draped in standard sterile fashion and a time out was called to identify proper site, proper procedure and IV antibiotics per weight were administered. I began by opening the prior small dorsal based incision over the DIP. There was copious purulence expressed from the dorsum of the the finger down to the skin over the proximal phalanx. I irrigated copiously with warm saling and packed the wound with nu-gauze. There was no evidence of joint involvement. Patient was placed in sterile dressings and awakened from anesthesia. There were no known complications.
== END 2021-12-31 11:07 | disposition home or self-care (01) | DRG 351 ==
LOC: HO.ED 20:34 → HO.EDOVER 20:54 → HO.S3 22:51
PROVIDERS: Orthopaedic Surgery; Physician Assistant Medical; Admitting Provider Hospitalist; Emergency Provider Internal Medicine; PCP Internal Medicine; Visit Provider Internal Medicine
DX: M65.142 Other infective (teno)synovitis, left hand (principal); B96.20 Unspecified Escherichia coli [E. coli] as the cause of diseases classified elsewhere; E66.9 Obesity, unspecified; Z68.34 Body mass index [BMI] 34.0-34.9, adult; F17.210 Nicotine dependence, cigarettes, uncomplicated; L03.012 Cellulitis of left finger; Z20.822 Contact with and (suspected) exposure to COVID-19; Z71.6 Tobacco abuse counseling; Z91.013 Allergy to seafood; Z88.8 Allergy status to other drugs, medicaments and biological substances; Z79.899 Other long term (current) drug therapy
CPT/HCPCS: 36415; 73140; 80048; 80076; 80202; 81001; 81025; 82565; 83605; 84702; 85025; 85027; 87040; 87071; 87077; 87186; 87205; 87635; 99285; J1170; J2250; J2270; J2405; J2543; J2765; J2795; J3370; Q0163

== ENCOUNTER 2022-01-12 | Outpatient (REF) | payer OTHER, SELFPAY | END 2022-01-12 00:01 | disposition home or self-care (01) | LOC: HO.HOSX | PROVIDERS: Visit Provider Physician Assistant | DX: Z13.89 Encounter for screening for other disorder (principal) ==

== ENCOUNTER 2022-01-30 07:53 | Outpatient (REF) | payer OTHER, SELFPAY | END 2022-01-30 07:54 | disposition home or self-care (01) | LOC: HO.HOSX 07:53 | PROVIDERS: Visit Provider Physician Assistant | DX: Z13.89 Encounter for screening for other disorder (principal) ==

== ENCOUNTER 2022-02-03 | Outpatient (REF) | payer OTHER, SELFPAY | END 2022-02-03 00:01 | disposition home or self-care (01) | LOC: HO.HOSX | PROVIDERS: Visit Provider Physician Assistant | DX: Z13.89 Encounter for screening for other disorder (principal) ==

== ENCOUNTER 2023-09-01 22:14 | Emergency (ER) | payer OTHER, SELFPAY ==
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
[2023-09-01 22:32] VITALS: BP 118/71; PULSE 78; RESP 18; TEMP 36.6; O2SAT 98; BMI 29.9
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
[2023-09-02] MEDS: oxyCODONE HCl Immed Release 5 MG TABLET PO (00:50)
[2023-09-02] MEDS: Amoxicillin/Potassium Clav 875 MG TABLET PO (00:51)
[2023-09-02 01:20] VITALS: BP 111/71; PULSE 78; RESP 18; TEMP 36.6; O2SAT 98
== END 2023-09-02 01:21 | disposition home or self-care (01) ==
PROVIDERS: Emergency Provider Emergency Medicine Emergency Medical Services
DX: S52.571A Other intraarticular fracture of lower end of right radius, initial encounter for closed fracture (principal); V89.2XXA Person injured in unspecified motor-vehicle accident, traffic, initial encounter; Y93.9 Activity, unspecified; Y92.410 Unspecified street and highway as the place of occurrence of the external cause; Y99.9 Unspecified external cause status
CPT/HCPCS: 29125; 73100; 99283

== ENCOUNTER 2023-09-07 10:44 | Outpatient (AMB) | payer OTHER, SELFPAY ==
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
[2023-09-07 11:07] VITALS: BMI 29.9
== END 2023-09-07 11:55 | disposition home or self-care (01) ==
PROVIDERS: Visit Provider Physician Assistant
DX: S52.501A Unspecified fracture of the lower end of right radius, initial encounter for closed fracture (principal); V47.6XXA Car passenger injured in collision with fixed or stationary object in traffic accident, initial encounter; Z04.3 Encounter for examination and observation following other accident
CPT/HCPCS: 25600; 99214

== ENCOUNTER 2023-09-07 10:54 | Outpatient (REF) | payer OTHER, SELFPAY ==
--- NOTE | ~2023-09-07 | XR_ITS ---
EXAMINATION: XR WRIST, RIGHT CLINICAL INFORMATION: Pain in unspecified wrist. COMPARISON: 09/01/2023. TECHNIQUE: PA, lateral, and oblique views of the right wrist. FINDINGS: Redemonstration of intra-articular distal radial fracture without significant displacement. There is mild impaction with subtle buckling at the dorsal cortex as previously noted. Diffuse soft tissue swelling. Ulnar styloid appears intact. XR/XR wrist RT min 3V IMPRESSION: Redemonstration of intra-articular distal radial fracture without significant displacement.
== END 2023-09-07 10:55 | disposition home or self-care (01) ==
LOC: HO.HOSX 10:54
PROVIDERS: Visit Provider Physician Assistant
DX: S52.501A Unspecified fracture of the lower end of right radius, initial encounter for closed fracture (principal)
CPT/HCPCS: 25600; 73110

== ENCOUNTER 2024-09-24 17:35 | Emergency (ER) | payer OTHER, SELFPAY ==
--- NOTE | 2024-09-24 17:43 | ECG_ITS ---
Test Reason : CHEST PAIN Blood Pressure : */* mmHG Vent. Rate : 90 BPM Atrial Rate : 90 BPM P-R Int : 152 ms QRS Dur : 74 ms QT Int : 352 ms P-R-T Axes : 62 41 43 degrees QTcB Int : 430 ms Normal sinus rhythm Normal ECG When compared with ECG of 27-Aug-2016 12:25, Nonspecific T wave abnormality no longer evident in Anterior leads Referred By: Generic ED Physician Electronically Signed By: DAWNA BASURTO MD
[2024-09-24 17:51] VITALS: BP 125/80; PULSE 80; RESP 16; TEMP 36.7; O2SAT 100; BMI 28.2
[2024-09-24 18:29] LABS: MANUAL DIFF FLAG NO
[2024-09-24 18:46] LABS: Alanine Aminotransferase 22 U/L (0-31); Albumin Level 4.4 g/dL (3.5-5.0); Alkaline Phosphatase 78 U/L (39-117); Anion Gap 11 (12-20); Aspartate Amino Transferase 22 U/L (5-31); Bilirubin Total 0.2 mg/dL (0.0-1.0); Blood Urea Nitrogen 8 mg/dL (9-16); Calcium 9.5 mg/dL (8.4-10.2); Carbon Dioxide 26 mmol/L (22-29); Chloride 106 mmol/L (96-108); Estimated Glomerular Filt Rate > 60; Glucose Random 91 mg/dL (60-115); Magnesium 2.1 mg/dL (1.6-2.6); Sodium 139 mmol/L (135-145); Total Protein 7.5 g/dL (6.5-8.0)
[2024-09-24 18:55] LABS: Troponin-I High Sensitivity < 2.7 ng/L (<3.5-17.0)
[2024-09-24 19:07] LABS: Basophils Absolute Auto 0.1 X10*3/uL (0.0-0.2); Basophils Percent Auto 0.4 % (0-2); Eosinophils Absolute Auto 0.2 X10*3/uL (0.0-0.4); Eosinophils Percent Auto 1.7 % (0-4); Hematocrit 40.5 % (37.0-47.0); Hemoglobin 12.7 g/dl (12.0-16.0); Imm Gran Abs Auto 0.05 X10*3/uL (0.00-0.03); Imm Gran Pct Auto 0.4 % (0.0-0.4); Lymphocytes Absolute Auto 2.1 X10*3/uL (1.2-4.9); Lymphocytes Percent Auto 18.1 % (20-40); Mean Corpuscular HGB Conc 31.4 g/dl (31.0-35.0); Mean Corpuscular Hemoglobin 24.7 pg (27.0-33.0); Mean Corpuscular Volume 78.6 fL (80.0-98.0); Mean Platelet Volume 9.8 fL (9.4-12.3); Monocytes Absolute Auto 0.7 X10*3/uL (0.1-1.2); Monocytes Percent Auto 5.7 % (2-11); Neutrophils Absolute Auto 8.5 x10*3/uL (2.0-8.3); Neutrophils Percent Auto 73.7 % (45-73); Platelet Count 265 X10*3/uL (160-400); Red Blood Count 5.15 X10*6/uL (4.20-5.50); Red Cell Distribution Width 15.9 % (11.0-16.0); White Blood Count 11.5 X10*3/uL (4.8-10.8)
[2024-09-24 19:55] LABS: HCG Quantitative < 2 mIU/mL
[2024-09-24 20:04] VITALS: BP 104/54; PULSE 79; RESP 16; TEMP 36.6; O2SAT 99
--- NOTE | 2024-09-24 20:30 | ED.CHESTPAIN ---
HPI - Chest Pain General Chief Complaint: Chest Pain Stated Complaint: CP radiating down left arm, dizziness, tired Time Seen by Provider: 09/24/24 19:34 Source: patient Limitations: no limitations History of Present Illness ED Provider: Sirisha Angela PA-C HPI narrative: 29-year-old female with a history of migraine and anxiety, presents with chest pain. Patient has been having intermittent episodes of sharp left anterior chest discomfort that moves to the shoulder. Her symptoms occur randomly. Patient states she is under a great deal of stress, her 6-year-old daughter and she is currently planning the [facility] service. Denies recent cough or cold symptoms. Denies new heavy lifting that could have precipitated her symptoms. Patient denies SI, she does see a therapist. Related Data Previous Rx's ?Medication ?Instructions ?Recorded doxycycline hyclate 100 mg tablet 100 mg PO BID #28 tabs 12/31/21 levofloxacin 500 mg tablet 500 mg PO DAILY #14 tabs 12/31/21 ondansetron 4 mg disintegrating 4 mg PO Q8H PRN nausea and 01/01/22 tablet vomiting #10 tabs celecoxib 200 mg capsule (Celebrex) 200 mg PO BID 30 days #60 caps 01/05/22 amoxicillin 875 mg-potassium 1 tab PO BID 10 days #20 tabs 09/02/23 clavulanate 125 mg tablet Allergies Allergy/AdvReac Type Severity Reaction Status Date / Time butalbital [From FIORICET] Allergy Unknown LIP Verified 09/24/24 17:53 SWELLING shellfish derived Allergy Swelling/ra Verified 09/24/24 17:53 Review of Systems Review of Systems: Yes all other systems are reviewed and are negative Constitutional: Constitutional: Denies fatigue and Denies fever(s) Cardiovascular: Cardiovascular: Reports chest pain and Denies dyspnea Respiratory: Respiratory: Denies cough and Denies dyspnea Endocrine: Endocrine: Denies fatigue PMFSH Past Medical History Attestation statement: The following information was validated with the patient. Social History Social History Household Members: Family Housing: House Do you presently have visiting nurse or other home services: No Alcohol intake: never Patient Tobacco Use Status: Current someday Tobacco user Tobacco use type: Cigarette Cigarettes Per Day: 2 Second Hand Smoke Exposure: Yes Substance Use Type: Marijuana Advance Directives: No Advance Directives Information Provided: No Do you have a plan to hurt others: No Plan service: No Current occupational status: disabled Current occupation: rt hand Physical Exam Vital Signs: Vital Signs: Last Vital Signs Temp 98 F 09/24/24 20:04 Pulse 79 09/24/24 20:04 Resp 16 09/24/24 20:04 BP 104/54 L 09/24/24 20:04 Pulse Ox 99 09/24/24 20:04 O2 Del Method Room Air 09/24/24 20:04 BMI result Body Mass Index 28.2 Const: Other: Alert well-appearing Orientation/consciousness: patient oriented x3 Resp: Effort & Inspection: normal respiratory effort Cardio: Other: Normal peripheral perfusion Skin: Other: Warm dry no rash Neuro: General: patient oriented x3, gait normal, no focal motor deficits and CN's II-XI intact bilaterally Psych: Other: Cooperative Medical Decision Making Medical Decision Making MDM Narrative: 29-year-old female with a history of migraine and anxiety, presents with chest pain. Patient has been having intermittent episodes of sharp left anterior chest discomfort that moves to the shoulder. Her symptoms occur randomly. Patient states she is under a great deal of stress, her 6-year-old daughter and she is currently planning the [facility] service. Denies recent cough or cold symptoms. Denies new heavy lifting that could have precipitated her symptoms. Patient denies SI, she does see a therapist. Problem: Anxiety, psychosocial stressors History: Per patient I have considered the following differential diagnoses: Anxiety, panic attack, emotional stress, ACS , musculoskeletal strain, Plan: ACS was considered, however the patient has no risk factors for coronary artery disease, her heart score is 0, screening labs including cardiac enzymes EKG and chest x-ray obtained. I do believe her symptoms are secondary to her anxiety, she has a great deal of stress over the passing of her daughter. She sees a therapist, she does not require outpatient resources, she is not suicidal, she does not require a care team consult. I have independently reviewed the following tests: Labs: No leukocytosis, not anemic, no electrolyte abnormality, troponin negative, not EKG: Normal sinus rhythm, rate of 90, no ischemic changes no ectopy QTC 430 Lab Data 09/24/24 18:25 09/24/24 18:25 Labs: Lab Results 05/28/25 Range/Units 18:25 WBC 11.5 H (4.8-10.8) X10*3/uL RBC 5.15 D (4.20-5.50) X10*6/uL Hgb 12.7 (12.0-16.0) g/dl Hct 40.5 (37.0-47.0) % MCV 78.6 L (80.0-98.0) fL MCH 24.7 L (27.0-33.0) pg MCHC 31.4 (31.0-35.0) g/dl RDW 15.9 (11.0-16.0) % Plt Count 265 (160-400) X10*3/uL MPV 9.8 (9.4-12.3) fL Immature Gran % (Auto) 0.4 (0.0-0.4) % Neut % (Auto) 73.7 H (45-73) % Lymph % (Auto) 18.1 L (20-40) % [place] % (Auto) 5.7 (2-11) % Eos % (Auto) 1.7 (0-4) % Baso % (Auto) 0.4 (0-2) % Lymph # (Auto) 2.1 (1.2-4.9) X10*3/uL [place] # (Auto) 0.7 (0.1-1.2) X10*3/uL Eos # (Auto) 0.2 (0.0-0.4) X10*3/uL Baso # (Auto) 0.1 (0.0-0.2) X10*3/uL Abs Immat Gran (auto) 0.05 H (0.00-0.03) X10*3/uL Absolute Neuts (auto) 8.5 H (2.0-8.3) x10*3/uL Absolute Nucleated RBC 0.000 (0.0-0.012) X10*3/uL Nucleated RBC % (auto) 0.0 (0.0-0.2) /100WBC Sodium 139 (135-145) mmol/L Potassium 4.0 (3.3-5.1) mmol/L Chloride 106 (96-108) mmol/L Carbon Dioxide 26 (22-29) mmol/L Anion Gap 11 L (12-20) BUN 8 L (9-16) mg/dL Creatinine 0.63 (0.5-1.4) mg/dL Estim Creat Clear Calc 99.0 Estimated GFR > 60 Random Glucose 91 (60-115) mg/dL Calcium 9.5 D (8.4-10.2) mg/dL Magnesium 2.1 (1.6-2.6) mg/dL Total Bilirubin 0.2 (0.0-1.0) mg/dL AST 22 (5-31) U/L ALT 22 (0-31) U/L Alkaline Phosphatase 78 (39-117) U/L Troponin I High Sens < 2.7 (<3.5-17.0) ng/L Total Protein 7.5 (6.5-8.0) g/dL Albumin 4.4 (3.5-5.0) g/dL Beta HCG, Quant < 2 mIU/mL Discharge Plan Discharge Clinical Impression: Emotional stress, Atypical chest pain Patient Disposition: Home, Self-Care Instructions: Noncardiac Chest Pain (ED) Additional Instructions: All of your screening labs including a cardiac enzymes were normal. There were no concerning changes on the EKG. I do feel your chest discomfort is related to the terrible stress you were under at this time. Continue to follow up with your therapist. Prescriptions: No Action doxycycline hyclate 100 mg tablet 100 mg PO BID Qty: 28 0RF levofloxacin 500 mg tablet 500 mg PO DAILY Qty: 14 0RF ondansetron 4 mg tablet,disintegrating 4 mg PO Q8H PRN (Reason: nausea and vomiting) Qty: 10 0RF amoxicillin-pot clavulanate 875-125 mg tablet 1 tab PO BID 10 Days Qty: 20 0RF celecoxib [Celebrex] 200 mg capsule 200 mg PO BID 30 Days Qty: 60 0RF Print Language: Bolivian
[2024-09-24 20:49] VITALS: BP 111/70; PULSE 76; RESP 16; TEMP 36.5; O2SAT 99
[2024-09-24 20:51] VITALS: BP 111/70; PULSE 76; RESP 16; TEMP 36.5; O2SAT 99
== END 2024-09-24 20:52 | disposition home or self-care (01) ==
PROVIDERS: Physician Assistant Medical; Emergency Provider Internal Medicine
DX: R07.89 Other chest pain (principal); F43.29 Adjustment disorder with other symptoms; Z63.4 Disappearance and death of family member; F17.210 Nicotine dependence, cigarettes, uncomplicated; F12.90 Cannabis use, unspecified, uncomplicated
CPT/HCPCS: 36415; 80053; 83735; 84484; 84702; 85025; 93005; 99283; 99285

== ENCOUNTER → 2024-09-24 17:43 | Outpatient (BNV) | payer OTHER, SELFPAY | PROVIDERS: Emergency Provider Internal Medicine; Visit Provider Internal Medicine Cardiovascular Disease | DX: R07.9 Chest pain, unspecified (principal) | CPT/HCPCS: 93010 ==

== ENCOUNTER 2024-11-18 21:26 | Emergency (ER) | payer OTHER, SELFPAY ==
[2024-11-18 21:34] VITALS: BP 130/82; PULSE 102; RESP 16; TEMP 36.8; O2SAT 99; BMI 27.6
[2024-11-18 21:50] LABS: MANUAL DIFF FLAG NO
[2024-11-18 21:52] LABS: Hematocrit 40.5 % (37.0-47.0); Hemoglobin 13.3 g/dl (12.0-16.0); Imm Gran Abs Auto 0.04 X10*3/uL (0.00-0.03); Imm Gran Pct Auto 0.3 % (0.0-0.4); Lymphocytes Absolute Auto 1.8 X10*3/uL (1.2-4.9); Mean Corpuscular HGB Conc 32.8 g/dl (31.0-35.0); Mean Corpuscular Hemoglobin 25.2 pg (27.0-33.0); Mean Corpuscular Volume 76.7 fL (80.0-98.0); NRBC Abs Auto 0.000 X10*3/uL (0.0-0.012); NRBC Pct Auto 0.0 /100WBC (0.0-0.2); Platelet Count 262 X10*3/uL (160-400); Red Blood Count 5.28 X10*6/uL (4.20-5.50); White Blood Count 13.1 X10*3/uL (4.8-10.8)
[2024-11-18 22:05] LABS: Alanine Aminotransferase 14 U/L (0-31); Albumin Level 4.6 g/dL (3.5-5.0); Alkaline Phosphatase 73 U/L (39-117); Anion Gap 12 (12-20); Aspartate Amino Transferase 19 U/L (5-31); Blood Urea Nitrogen 8 mg/dL (9-16); Calcium 9.3 mg/dL (8.4-10.2); Carbon Dioxide 23 mmol/L (22-29); Chloride 108 mmol/L (96-108); Creatinine Clr Calc Pharmacy 72.7; Estimated Glomerular Filt Rate > 60; Magnesium 2.1 mg/dL (1.6-2.6); Potassium 3.9 mmol/L (3.3-5.1); Sodium 139 mmol/L (135-145); Total Protein 7.8 g/dL (6.5-8.0)
--- NOTE | 2024-11-18 22:07 | ED.HA ---
HPI - Headache General Chief Complaint: Headache Stated Complaint: Migraine/Cramping/Vomiting Time Seen by Provider: 11/18/24 22:05 History of Present Illness ED Provider: Dimitrios Louise MD HPI Narrative: 29-year-old female with self-reported and previously documented history of migraine headaches with similar character headache today. Related Data Previous Rx's ?Medication ?Instructions ?Recorded doxycycline hyclate 100 mg tablet 100 mg PO BID #28 tabs 12/31/21 levofloxacin 500 mg tablet 500 mg PO DAILY #14 tabs 12/31/21 ondansetron 4 mg disintegrating 4 mg PO Q8H PRN nausea and 01/01/22 tablet vomiting #10 tabs celecoxib 200 mg capsule (Celebrex) 200 mg PO BID 30 days #60 caps 01/05/22 amoxicillin 875 mg-potassium 1 tab PO BID 10 days #20 tabs 09/02/23 clavulanate 125 mg tablet Allergies Allergy/AdvReac Type Severity Reaction Status Date / Time butalbital (From FIORICET) Allergy Unknown LIP Verified 11/18/24 21:37 SWELLING shellfish derived Allergy Swelling/ra Verified 11/18/24 21:37 [facility] Social History Social History Household Members: Family Housing: House Do you presently have visiting nurse or other home services: No Alcohol intake: never Patient Tobacco Use Status: Current someday Tobacco user Tobacco use type: Cigarette Cigarettes Per Day: 2 Smoked in Last 30 Days: Yes Second Hand Smoke Exposure: Yes Use of substances other than those prescribed or required for medical reasons: No Substance Use Type: Marijuana Substance Use Frequency Other:: former marijuana use, quit approx 1 month ago Advance Directives: No Advance Directives Information Provided: No Do you have a plan to hurt others: No Plan service: No Current occupational status: disabled Current occupation: rt hand Physical Exam Exam: Exam: GENERAL: Appears uncomfortable but not ill or toxic. No meningismus eyes closed in dark room. HEAD/NECK: Normal to inspection. Neck supple. No cervical lymphadenopathy. EYES: Normal to inspection. Sclera non-icteric. ENMT: External nose normal. RESPIRATORY: Respiratory effort normal. Lungs clear to auscultation bilaterally. CARDIOVASCULAR: Regular rate. Normal rhythm. No murmur. No rubs. GI: Soft, non-tender, non-distended. No rebound or guarding. No masses palpable. No hepatosplenomegaly. SKIN: No jaundice. NEUROLOGICAL: Alert. PSYCHIATRIC: Alert. Appearance appropriate for situation. Attitude cooperative. OTHER: Comprehensive Neuro exam: Face symmetric, tongue midline, strong symmetric eye closure, pupils symmetric and reactive to light, intact sensation to the face throughout, intact strong face deviation and shoulder shrug. Supple neck, no meningismus. Sensation intact to light touch throughout 5 out of 5 strength in bilateral upper extremities, 5 and 5 strength in lower extremities Vital Signs: Vital Signs: Last Vital Signs Temp 98.1 F 11/19/24 00:08 Pulse 68 11/19/24 00:08 Resp 16 11/19/24 00:08 BP 106/60 11/19/24 00:08 Pulse Ox 98 11/19/24 00:08 O2 Del Method Room Air 11/19/24 00:08 BMI result Body Mass Index 27.6 Medications Administered Discontinued Medications Generic Name Dose Route Start Last Admin Trade Name Freq PRN Reason Stop Dose Admin Dexamethasone Sodium Phosphate 10 mg 11/18/24 22:06 11/18/24 22:47 Dexamethasone Sod Phosphate 10 Mg/Ml Vial IVPUSH 11/18/24 22:07 10 mg ONCE ONE Administration Sodium Chloride 1,000 mls @ 999 mls/hr 11/18/24 22:15 11/18/24 22:47 Ns IV 11/18/24 23:15 999 mls/hr .Q1H1M YOEL Administration Ketorolac Tromethamine 15 mg 11/18/24 22:06 11/18/24 22:47 Ketorolac Tromethamine 15 Mg/Ml Vial IVPUSH 11/18/24 22:07 15 mg ONCE ONE Administration Metoclopramide HCl 10 mg 11/18/24 22:06 11/18/24 22:47 Metoclopramide Hcl 10 Mg/2 Ml Vial IVPUSH 11/18/24 22:07 10 mg ONCE ONE Administration Medical Decision Making Medical Decision Making MDM Narrative: Medical Decision Makin-year-old female with a chronic self-described migraine with similar character slightly more severe. Photophobia but no fever no neck rigidity no rash. Mild GI upset earlier today she feels this is resolved and mainly complains of throbbing migrainous headache. No focal neurologic deficits nor symptoms described. Preliminary Favored Differential Diagnosis: Migraine, tension headache, dehydration, stress,, gastritis, PUD, GERD among additional considered etiologies Testing Interpreted Independently: Not Applicable Radiology or Lab testing Results Reviewed: Not Applicable Consults: Not Applicable Independent Historians/External Chart Reviews: Not Applicable Social Determinants of Health Impacting MDM/Planning: Not Applicable Lab Data 11/18/24 21:45 11/18/24 21:45 Labs: Lab Results 11/18/24 Range/Units 21:45 WBC 13.1 H (4.8-10.8) X10*3/uL RBC 5.28 (4.20-5.50) X10*6/uL Hgb 13.3 (12.0-16.0) g/dl Hct 40.5 (37.0-47.0) % MCV 76.7 L (80.0-98.0) fL MCH 25.2 L (27.0-33.0) pg MCHC 32.8 (31.0-35.0) g/dl RDW 16.0 (11.0-16.0) % Plt Count 262 (160-400) X10*3/uL MPV 9.4 (9.4-12.3) fL Immature Gran % (Auto) 0.3 (0.0-0.4) % Neut % (Auto) 78.0 H (45-73) % Lymph % (Auto) 14.1 L (20-40) % [place] % (Auto) 5.4 (2-11) % Eos % (Auto) 2.0 (0-4) % Baso % (Auto) 0.2 (0-2) % Lymph # (Auto) 1.8 (1.2-4.9) X10*3/uL [place] # (Auto) 0.7 (0.1-1.2) X10*3/uL Eos # (Auto) 0.3 (0.0-0.4) X10*3/uL Baso # (Auto) 0.0 (0.0-0.2) X10*3/uL Abs Immat Gran (auto) 0.04 H (0.00-0.03) X10*3/uL Absolute Neuts (auto) 10.2 H (2.0-8.3) x10*3/uL Absolute Nucleated RBC 0.000 (0.0-0.012) X10*3/uL Nucleated RBC % (auto) 0.0 (0.0-0.2) /100WBC Sodium 139 (135-145) mmol/L Potassium 3.9 (3.3-5.1) mmol/L Chloride 108 (96-108) mmol/L Carbon Dioxide 23 (22-29) mmol/L Anion Gap 12 (12-20) BUN 8 L (9-16) mg/dL Creatinine 0.85 (0.5-1.4) mg/dL Estim Creat Clear Calc 72.7 Estimated GFR > 60 Random Glucose 89 (60-115) mg/dL Calcium 9.3 (8.4-10.2) mg/dL Magnesium 2.1 (1.6-2.6) mg/dL Total Bilirubin 0.6 (0.0-1.0) mg/dL AST 19 (5-31) U/L ALT 14 (0-31) U/L Alkaline Phosphatase 73 (39-117) U/L Total Protein 7.8 (6.5-8.0) g/dL Albumin 4.6 (3.5-5.0) g/dL Influenza Type A (PCR) NEGATIVE (Negative) Influenza Type B (PCR) NEGATIVE (Negative) RSV RNA Qual (PCR) NEGATIVE (Negative) SARS-CoV-2 RNA (RT-PCR) NEGATIVE (Negative) Discharge Plan Discharge Clinical Impression: Headache Patient Disposition: Home, Self-Care Instructions: Acute Headache (DC) Additional Instructions: DISCHARGE DIAGNOSES: Headache likely migraine. HISTORY OF PRESENTATION: ?Headache and upset stomach earlier today EMERGENCY DEPARTMENT COURSE,TESTS, TREATMENTS: While in the ED today in the emergency department you had 1 L of intravenous fluid, several medications to combat what we felt was likely migraine headache including ketorolac, dexamethasone, metoclopramide with relief. Basic lab work was reassuring. DISCHARGE MEDICATIONS: ?[We have made no changes to your regular medication regimen] FOLLOW-UP: ?Call your primary or general physician soon as possible to discuss your symptoms, your ED visit and to discuss follow up plans Call our neurology practice to try to get established as a patient there they can help you manage your chronic migraine headaches INSTRUCTIONS ?& RETURN PRECAUTIONS: If any symptoms change first call your primary physician, if it is after-hours your primary doctors office should have a provider person investigator you can speak with. If the symptoms are severe or very concerning to you then call 911 or return to the ED. Call your PCP for follow up. Dimitrios Louise MD Emergency Physician [facility] Prescriptions: No Action doxycycline hyclate 100 mg tablet 100 mg PO BID Qty: 28 0RF levofloxacin 500 mg tablet 500 mg PO DAILY Qty: 14 0RF ondansetron 4 mg tablet,disintegrating 4 mg PO Q8H PRN (Reason: nausea and vomiting) Qty: 10 0RF amoxicillin-pot clavulanate 875-125 mg tablet 1 tab PO BID 10 Days Qty: 20 0RF celecoxib [Celebrex] 200 mg capsule 200 mg PO BID 30 Days Qty: 60 0RF Referrals: [facility] [place] Neuro/Sleep [Provider Group, Neurology] Referral Note: Migraines Interventions: ED Discharge Assessment Last Done: 11/19/24 00:08 Discharge Date/Time: 11/19/24 00:08 Print Language: Vietnamese
[2024-11-18 22:28] LABS: Resp Syncy Virus RNA Qual PCR NEGATIVE (Negative); SARS COV2 PCR INHOUSE NEGATIVE (Negative)
[2024-11-19] VITALS: BP 106/60; PULSE 68; RESP 16; TEMP 36.7; O2SAT 98
--- NOTE | 2024-11-19 00:03 | PC.NURSE ---
Reviewed discharge instruction with pt. pt verbalized understanding, no sign of distress. pt had a steady gait upon discharge.
[2024-11-19 00:08] VITALS: BP 106/60; PULSE 68; RESP 16; TEMP 36.7; O2SAT 98
== END 2024-11-19 00:08 | disposition home or self-care (01) ==
PROVIDERS: Emergency Provider Emergency Medicine
DX: R51.9 Headache, unspecified (principal); F17.210 Nicotine dependence, cigarettes, uncomplicated; Z03.818 Encounter for observation for suspected exposure to other biological agents ruled out; Z79.899 Other long term (current) drug therapy
CPT/HCPCS: 80053; 83735; 85025; 87637; 96374; 96375; 99284; 99285; J1100; J1885; J2765